=== PATIENT | female | born 1970 | race American Indian/Alaskan Native ===

== ENCOUNTER 2017-01-17 02:16 | Emergency (ER) | payer MEDICARE, MEDICAID ==
[2017-01-17] MEDS ORDERED: Sodium Chloride 0.9% 1,000 ML IV ONE (02:44)
--- NOTE | 2017-01-17 02:58 | EDM.PDOC ---
ED HPI GI/ABDOMINAL - General Chief Complaint: Gastrointestinal Problem Stated Complaint: COLON BLEED Time Seen by Provider: 01/17/17 02:35 Source of Information: Reports: Patient History Limitations: Reports: No limitations - History of Present Illness INITIAL COMMENTS - FREE TEXT/NARRATIVE: c/o abdominal cramping starting approximately 7pm tonight. Initially hard stool pressing to dark cranberry liquid and passing large clot through rectum. Hx of GI bleed in past. Timing/Duration: Reports: Hour(s): Location: generalized Quality: Reports: cramping Associated Symptoms (-Female): Reports: constipation, diarrhea, bloody stools. Denies: fever/chills, nausea/vomiting - Related Data Allergies/ADRs: Allergies Allergy/AdvReac Type Severity Reaction Status Date / Time levofloxacin [From Levaquin] Allergy Blurred Verified 01/17/17 02:23 Vision tramadol Allergy Nausea Verified 01/17/17 02:23 Home Meds: Home Meds Aspirin [[place] Aspirin] 81 mg PO BEDTIME 12/18/13 [History] DULoxetine [Cymbalta] 60 mg PO DAILY 12/18/13 [History] Levothyroxine Sodium [Synthroid] 125 mcg PO DAILY 12/18/13 [History] Loratadine [Allergy] 10 mg PO BEDTIME 12/18/13 [History] Multivitamin [Multi-Vitamin Daily] 1 each PO DAILY 12/18/13 [History] [place]-3/DHA/Epa/Fish Oil [Fish Oil 1,000 mg Softgel] 1 each PO BEDTIME 12/18/13 [History] atorvaSTATin Calcium [Atorvastatin Calcium] 10 mg PO DAILY 12/18/13 [History] Lisinopril [Prinivil] 10 mg PO DAILY 09/05/14 [History] sitaGLIPtin Phos/Metformin HCl [Janumet 50-1,000 MG] 1 each PO BID 10/19/14 [ History] Folic Acid 1 mg PO DAILY 02/06/15 [History] Methotrexate 2.5 mg PO Q7D 02/06/15 [History] Valproic Acid 1 tab PO BID 08/13/16 [History] Albuterol Sulfate [Proair Respiclick] 90 mcg IH Q6HR PRN 11/24/16 [History] Fluticasone Propionate [Flonase] 50 mcg NASBOTH DAILY PRN 11/24/16 [History] Polyethylene Glycol 3350 [MiraLAX] 17 gm PO DAILY PRN 11/24/16 [History] glipiZIDE [Glucotrol] 5 mg PO DAILY 11/24/16 [History] Acetaminophen/HYDROcodone [[place] 325-10 MG] 1 tab PO QID tablet 11/26/16 [Rx] Albuterol/Ipratropium [DuoNeb 3.0-0.5 MG/3 ML] 3 ml NEB Q6HR PRN #30 neb [Rx] Tocilizumab [Actemra] ASDIRECTED 01/17/17 [History] Past Medical History - Past Health History Medical/Surgical History: Denies Medical/Surgical History HEENT History: Reports: Impaired vision Cardiovascular History: Reports: High cholesterol, Hypertension Respiratory History: Reports: Asthma, Other (see below) Other Respiratory History: Pneumonia Gastrointestinal History: Reports: Chronic constipation, GI bleed, Other (see below) Other Gastrointestinal History: ischemic colitis Genitourinary History: Reports: None JOB BOSS History: Reports: Musculoskeletal History: Reports: Back pain, chronic, Fracture, Fibromyalgia, Osteoarthritis, RA Neurological History: Reports: Neuropathy, diabetic, TIA Psychiatric History: Reports: Depression Endocrine/Metabolic History: Reports: Diabetes, type II, Hypothyroidism, Obesity /BMI 30+ Hematologic History: Reports: None, Folic acid Immunologic History: Reports: None Oncologic (Cancer) History: Reports: None Dermatologic History: Reports: None - Infectious Disease History Infectious Disease History: Reports: Chicken pox, Other (see below) Other Infectious Disease History: chicken pox when a kid - Past Surgical History Head Surgeries/Procedures: Reports: None HEENT Surgical History: Reports: None Cardiovascular Surgical History: Reports: None GI Surgical History: Reports: Hernia repair/other, Other (see below) Other GI Surgeries/Procedures: Patient stated she needs another hernia repair. Female Surgical History: Reports: section, Hysterectomy Other Female Surgeries/Procedures: Patient stated she had a hysterectomy due to benign tumors. Social & Family History - Family History Family Medical History: Noncontributory HEENT: Reports: Glaucoma, Other (see below) Other HEENT Family History: aunt glaucoma Cardiac: Reports: Heart failure, High cholesterol, Hypertension, Other (see below) Other Cardiac Family History: Mother has high cholesterol and hypertension. Maternal grandmother heart failure. Respiratory: Reports: Asthma, COPD OBGYN: Reports: Musculoskeletal: Reports: Arthritis, Back pain, chronic, Osteoarthritis Endocrine/Metabolic: Reports: Diabetes, type II Oncologic: Reports: Breast, Lung - Tobacco Use Smoking Status *Q: Current Every Day Smoker Years of Tobacco use: 35 Packs/Tins Daily: 1 Used Tobacco, but Quit: No Month Tobacco Last Used: july Second Hand Smoke Exposure: No - Caffeine Use Caffeine Use: Reports: Coffee - Alcohol Use Days Per Week of Alcohol Use: 0 - Recreational Drug Use Recreational Drug Use: No - Sexual History Sexual History: Reports: Sexually active - Living Situation & Occupation Living situation: Reports: with family Occupation: disabled ED ROS GENERAL - Review of Systems Review Of Systems: See Below Constitutional: Reports: no symptoms HEENT: Reports: No symptoms Respiratory: Reports: no symptoms Cardiovascular: Reports: No symptoms GI/Abdominal: Reports: Abdominal pain, Bloody stool, Constipation, Diarrhea. Denies: Vomiting : Reports: no symptoms, other (rheumatoid arthritis) Skin: Reports: no symptoms Neurological: Reports: no symptoms Psychiatric: Reports: No symptoms ED EXAM, GI/ABD - Physical Exam Exam: See Below Exam Limited By: No limitations General Appearance: alert, anxious, mild distress Eyes: bilateral: EOMI (mild sclera injection bilaterally. ) Ears: normal external exam Nose: normal inspection Throat/Mouth: Normal inspection Head: atraumatic, normocephalic Neck: normal inspection, supple, non-tender, full range of motion Respiratory/Chest: no respiratory distress, lungs clear Cardiovascular: normal peripheral pulses, regular rate, rhythm GI/Abdominal: normal bowel sounds, soft, tenderness (generalized lower abdomen) . No: distention, guarding, rebound, hepatomegaly, splenomegaly Rectal (Female) Exam: Normal rectal tone, Other (No stool in rectal vault. scnat bright red blood on glove. No obvious hemorrhoids.) Back Exam: normal inspection, full range of motion Neurological: alert, oriented Psychiatric: normal affect, normal mood, anxious Skin Exam: Warm, Dry, Intact, Normal color Course - Vital Signs Last Recorded V/S: Last Vital Signs Temp 95.6 F 01/17/17 02:20 Pulse 80 01/17/17 02:20 Resp 16 01/17/17 02:20 BP 135/79 01/17/17 02:20 Pulse Ox 100 01/17/17 02:20 - Orders/Labs/Meds Orders: Active Orders 24 hr Category Date Time Status Abdomen Pelvis wo Cont [CT] Urgent Exams 01/17/17 03:02 Taken Sodium Chloride 0.9% [Normal Saline] 1,000 ml Med 01/17/17 02:44 Active IV .BOLUS Medication Orders Sodium Chloride (Normal Saline) 1,000 mls @ 200 mls/hr IV .BOLUS ONE Stop: 01/17/17 07:43 Last Admin: 01/17/17 02:54 Dose: 200 mls/hr Labs: Laboratory Tests 01/17/17 01/17/17 01/17/17 Range/Units 02:42 02:50 02:50 WBC 13.3 H (5.0-10.0) 10^3/uL RBC 4.82 (4.2-5.4) 10^6/uL Hgb 15.4 (12.0-16.0) g/dL Hct 46.3 (37.0-47.0) % MCV 96.1 (80-100) fL MCH 32.0 (27.0-34.0) pg MCHC 33.3 (33.0-35.0) g/dL Plt Count 171 (150-450) 10^3/uL Neut % (Auto) 59.9 (42.2-75.2) % Lymph % (Auto) 32.5 (20.5-50.1) % [place] % (Auto) 6.2 (2-8) % Eos % (Auto) 1.2 (1.0-3.0) % Baso % (Auto) 0.2 (0.0-1.0) % PT 10.3 (9.0-12.0) SEC INR 1.0 (0.9-1.2) Sodium (135-145) mmol/L Potassium (3.6-5.0) mmol/L Chloride (101-111) mmol/L Carbon Dioxide (21.0-31.0) mmol/L Anion Gap BUN (7-18) mg/dL Creatinine (0.6-1.3) mg/dL Est Cr Clr Drug Dosing mL/min Estimated GFR (MDRD) BUN/Creatinine Ratio Glucose (74-105) mg/dL Calcium (8.4-10.2) mg/dl Total Bilirubin (0.2-1.0) mg/dL AST (10-42) IU/L ALT (10-60) IU/L Alkaline Phosphatase (42-121) IU/L Total Protein (6.7-8.2) g/dl Albumin (3.2-5.5) g/dl Globulin Albumin/Globulin Ratio Amylase (28-100) U/L Lipase (22-51) U/L Urine Color Dark yellow (YELLOW) Urine Appearance Clear (CLEAR) Urine pH 7.5 (5.0-9.0) Ur Specific [place] 1.020 (1.005-1.030) Urine Protein Trace H (NEGATIVE) Urine Glucose (UA) Negative (NEGATIVE) Urine Ketones Negative (NEGATIVE) Urine Occult Blood Trace-intact H (NEGATIVE) Urine Nitrite Negative (NEGATIVE) Urine Bilirubin Negative (NEGATIVE) Urine Urobilinogen 0.2 (0.2-1.0) mg/dL Ur Leukocyte Esterase Negative (NEGATIVE) Urine RBC 0-5 /HPF Urine WBC Not seen (0-5/HPF) /HPF Ur Epithelial Cells Few /HPF Urine Bacteria Rare (0-FEW/HPF) /HPF 03// Range/Units 02:50 WBC (5.0-10.0) 10^3/uL RBC (4.2-5.4) 10^6/uL Hgb (12.0-16.0) g/dL Hct (37.0-47.0) % MCV (80-100) fL MCH (27.0-34.0) pg MCHC (33.0-35.0) g/dL Plt Count (150-450) 10^3/uL Neut % (Auto) (42.2-75.2) % Lymph % (Auto) (20.5-50.1) % [place] % (Auto) (2-8) % Eos % (Auto) (1.0-3.0) % Baso % (Auto) (0.0-1.0) % PT (9.0-12.0) SEC INR (0.9-1.2) Sodium 137 (135-145) mmol/L Potassium 4.3 (3.6-5.0) mmol/L Chloride 103 (101-111) mmol/L Carbon Dioxide 26.0 (21.0-31.0) mmol/L Anion Gap 12.3 BUN 16 (7-18) mg/dL Creatinine 0.6 (0.6-1.3) mg/dL Est Cr Clr Drug Dosing 111.51 mL/min Estimated GFR (MDRD) > 60 BUN/Creatinine Ratio 26.66 Glucose 106 H (74-105) mg/dL Calcium 8.9 (8.4-10.2) mg/dl Total Bilirubin 0.5 (0.2-1.0) mg/dL AST 39 (10-42) IU/L ALT 47 (10-60) IU/L Alkaline Phosphatase 47 (42-121) IU/L Total Protein 7.0 (6.7-8.2) g/dl Albumin 4.3 (3.2-5.5) g/dl Globulin 2.7 Albumin/Globulin Ratio 1.59 Amylase 45 (28-100) U/L Lipase 31 (22-51) U/L Urine Color (YELLOW) Urine Appearance (CLEAR) Urine pH (5.0-9.0) Ur Specific [place] (1.005-1.030) Urine Protein (NEGATIVE) Urine Glucose (UA) (NEGATIVE) Urine Ketones (NEGATIVE) Urine Occult Blood (NEGATIVE) Urine Nitrite (NEGATIVE) Urine Bilirubin (NEGATIVE) Urine Urobilinogen (0.2-1.0) mg/dL Ur Leukocyte Esterase (NEGATIVE) Urine RBC /HPF Urine WBC (0-5/HPF) /HPF Ur Epithelial Cells /HPF Urine Bacteria (0-FEW/HPF) /HPF Meds: Medications Generic Name Dose Route Start Last Admin Trade Name Freq PRN Reason Stop Dose Admin Sodium Chloride 1,000 mls @ 200 mls/hr 01/17/17 02:44 01/17/17 02:54 Normal Saline IV 01/17/17 07:43 200 mls/hr .BOLUS ONE Administration Discontinued Medications Generic Name Dose Route Start Last Admin Trade Name Freq PRN Reason Stop Dose Admin Pantoprazole Sodium 40 mg/ 100 mls @ 200 mls/hr 01/17/17 03:00 01/17/17 03:13 Sodium Chloride IV 01/17/17 03:29 200 mls/hr ONETIME ONE Administration - Radiology Interpretation Free Text/Narrative:: CT abdomen and pelvis notes incarcerated ventral hernia, inflammed sigmoid and short section of small bowel. Mesenteric stranding with fluid with in hernia sac - Re-Assessments/Exams Free Text/Narrative Re-Assessment/Exam: 01/17/17 04:46 TC consult [facility] Dr. Mendez accepting of patient in transfer. Tx via [facility]. Patient stable. Intermittent light dozing. NPO status maintained. Departure - Departure Time of Disposition: 04:49 Disposition: DC/Tfer to Acute Hospital 02 Condition: fair Clinical Impression: Incarcerated ventral hernia, Abdominal pain, High risk medication use, Rectal bleeding Diabetes Qualifiers: Diabetes mellitus type: type 2 Forms: ED Department Discharge - My Orders Last 24 Hours: My Active Orders 01/17/17 02:44 Sodium Chloride 0.9% [Normal Saline] 1,000 ml IV .BOLUS 01/17/17 03:02 Abdomen Pelvis wo Cont [CT] Urgent - Assessment/Plan Last 24 Hours: My Active Orders 01/17/17 02:44 Sodium Chloride 0.9% [Normal Saline] 1,000 ml IV .BOLUS 01/17/17 03:02 Abdomen Pelvis wo Cont [CT] Urgent
[2017-01-17] MEDS ORDERED: Pantoprazole 40 MG in Sodium Chloride 0.9% 100 ML IV ONE (03:00)
[2017-01-17 03:18] LABS: CHLORIDE,CL 103 mmol/L (101-111); SODIUM,NA 137 mmol/L (135-145)
[2017-01-17 04:46] VITALS: BP 119/61
[2017-01-17] MEDS ORDERED: Ondansetron 4 MG/2 ML SDV IV ONE (04:47)
[2017-01-17] MEDS ORDERED: Morphine 4 MG/ML Syringe IVPUSH ONE (04:48)
== END 2017-01-17 05:12 ==
LOC: DL.ED 02:16
DX: K46.0 Unspecified abdominal hernia with obstruction, without gangrene (principal); K62.5 Hemorrhage of anus and rectum; E11.9 Type 2 diabetes mellitus without complications; R10.9 Unspecified abdominal pain; E78.00 Pure hypercholesterolemia, unspecified; I10 Essential (primary) hypertension; G89.29 Other chronic pain; M54.9 Dorsalgia, unspecified; M19.90 Unspecified osteoarthritis, unspecified site; F17.210 Nicotine dependence, cigarettes, uncomplicated; E03.9 Hypothyroidism, unspecified; E66.9 Obesity, unspecified; Z68.36 Body mass index [BMI] 36.0-36.9, adult; Z86.73 Personal history of transient ischemic attack (TIA), and cerebral infarction without residual deficits; Z90.710 Acquired absence of both cervix and uterus; Z98.890 Other specified postprocedural states; Z79.899 Other long term (current) drug therapy; Z88.1 Allergy status to other antibiotic agents; Z88.5 Allergy status to narcotic agent; Z79.82 Long term (current) use of aspirin
CPT/HCPCS: 36415; 74176; 80053; 81001; 82150; 82272; 83690; 85025; 85610; 96361; 96365; 96375; 99285; C9113; J2270; J2405; J7030; J7050

== ENCOUNTER 2017-06-05 19:37 | Emergency (ER) | payer MEDICARE, MEDICAID ==
[2017-06-05 19:45] VITALS: BP 122/68
--- NOTE | 2017-06-05 20:12 | EDM.PDOC ---
ED HPI GENERAL MEDICAL PROBLEM - General Chief Complaint: Lower Extremity Injury/Pain Stated Complaint: LEG VERY PAINFUL, [id number] Time Seen by Provider: 06/05/17 20:00 Source of Information: Reports: Patient History Limitations: Reports: No Limitations - History of Present Illness INITIAL COMMENTS - FREE TEXT/NARRATIVE: ED with c/o pain for past 2 days in right knee, feels area is warm and swollen. RA has been flaring recently and due for routine infusion on Sunday. Notes remote hx of blood clots. Denies recent travel or sitting for extended periods. Quality: Reports: Ache, Throbbing Severity: Mild Associated Symptoms: Reports: No Other Symptoms Right Knee Pain Score (Numeric/FACES): 7 - Related Data Allergies Allergy/AdvReac Type Severity Reaction Status Date / Time levofloxacin [From Levaquin] Allergy Blurred Verified 06/05/17 19:44 Vision tramadol Allergy Nausea Verified 06/05/17 19:44 Home Meds: Home Meds Aspirin [[place] Aspirin] 81 mg PO BEDTIME 12/18/13 [History] DULoxetine [Cymbalta] 60 mg PO DAILY 12/18/13 [History] Levothyroxine Sodium [Synthroid] 125 mcg PO DAILY 12/18/13 [History] Loratadine [Allergy] 10 mg PO BEDTIME 12/18/13 [History] Multivitamin [Multi-Vitamin Daily] 1 each PO DAILY 12/18/13 [History] [place]-3/DHA/Epa/Fish Oil [Fish Oil 1,000 mg Softgel] 1 each PO BEDTIME 12/18/13 [History] atorvaSTATin Calcium [Atorvastatin Calcium] 10 mg PO DAILY 12/18/13 [History] Lisinopril [Prinivil] 10 mg PO DAILY 09/05/14 [History] sitaGLIPtin Phos/Metformin HCl [Janumet 50-1,000 MG] 1 each PO BID 10/19/14 [ History] Folic Acid 1 mg PO DAILY 02/06/15 [History] Methotrexate 2.5 mg PO Q7D 02/06/15 [History] Valproic Acid 1 tab PO BID 08/13/16 [History] Albuterol Sulfate [Proair Respiclick] 90 mcg IH Q6HR PRN 11/24/16 [History] Fluticasone Propionate [Flonase] 50 mcg NASBOTH DAILY PRN 11/24/16 [History] Polyethylene Glycol 3350 [MiraLAX] 17 gm PO DAILY PRN 11/24/16 [History] glipiZIDE [Glucotrol] 5 mg PO DAILY 11/24/16 [History] Acetaminophen/HYDROcodone [[place] 325-10 MG] 1 tab PO QID tablet 11/26/16 [Rx] Albuterol/Ipratropium [DuoNeb 3.0-0.5 MG/3 ML] 3 ml NEB Q6HR PRN #30 neb [Rx] Tocilizumab [Actemra] 1 dose IV ASDIRECTED 01/17/17 [History] Past Medical History - Past Health History Medical/Surgical History: Denies Medical/Surgical History HEENT History: Reports: Impaired Vision Cardiovascular History: Reports: High Cholesterol, Hypertension Respiratory History: Reports: Asthma Other Respiratory History: Pneumonia Gastrointestinal History: Reports: Chronic Constipation, GI Bleed Other Gastrointestinal History: ischemic colitis Genitourinary History: Reports: None 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: Musculoskeletal History: Reports: Back Pain, Chronic, Fracture, Fibromyalgia, Osteoarthritis, RA Neurological History: Reports: Neuropathy, Diabetic, TIA Psychiatric History: Reports: Depression Endocrine/Metabolic History: Reports: Diabetes, Type II, Hypothyroidism, Obesity /BMI 30+ Hematologic History: Reports: Folic Acid Immunologic History: Reports: None Oncologic (Cancer) History: Reports: None Dermatologic History: Reports: None - Infectious Disease History Infectious Disease History: Reports: Chicken Pox Other Infectious Disease History: chicken pox when a kid - Past Surgical History Head Surgeries/Procedures: Reports: None GI Surgical History: Reports: Hernia Repair/Other Female Surgical History: Reports: Section, Hysterectomy Social & Family History - Family History Family Medical History: Noncontributory HEENT: Reports: Glaucoma, Other (See Below) Other HEENT Family History: aunt glaucoma Cardiac: Reports: Heart Failure, High Cholesterol, Hypertension, Other (See Below) Other Cardiac Family History: Mother has high cholesterol and hypertension. Maternal grandmother heart failure. Respiratory: Reports: Asthma, COPD OBGYN: Reports: Musculoskeletal: Reports: Arthritis, Back pain, Chronic, Osteoarthritis Endocrine/Metabolic: Reports: Diabetes, type II Oncologic: Reports: Breast, Lung - Tobacco Use Smoking Status *Q: Current Every Day Smoker Years of Tobacco use: 30 Packs/Tins Daily: 0.5 Used Tobacco, but Quit: No Month Tobacco Last Used: july Second Hand Smoke Exposure: Yes - Caffeine Use Caffeine Use: Reports: Coffee - Alcohol Use Days Per Week of Alcohol Use: 0 - Recreational Drug Use Recreational Drug Use: No - Sexual History Sexual History: Reports: Sexually Active - Living Situation & Occupation Living situation: Reports: with Family Occupation: Disabled Review of Systems - Review of Systems Review Of Systems: See Below Constitutional: Reports: No Symptoms Eyes: Reports: No Symptoms Ears: Reports: No Symptoms Nose: Reports: No Symptoms Mouth/Throat: Reports: No Symptoms Respiratory: Reports: No Symptoms Cardiovascular: Reports: No Symptoms GI/Abdominal: Reports: No Symptoms, Other (hx GI bleed with antiinflamatory use) Musculoskeletal: Reports: Joint Pain (right knee), Joint Swelling Skin: Reports: No Symptoms Neurological: Reports: No Symptoms ED EXAM, GENERAL - Physical Exam Exam: See Below Exam Limited By: No Limitations General Appearance: Alert, Mild Distress (with ambulation) Eye Exam: Bilateral Eye: EOMI Ears: Normal External Exam Throat/Mouth: Normal Voice Head: Atraumatic, Normocephalic Neck: Normal Inspection Respiratory/Chest: No Respiratory Distress, Lungs Clear, Normal Breath Sounds Cardiovascular: Normal Peripheral Pulses, Regular Rate, Rhythm GI/Abdominal: Normal Bowel Sounds, Soft Extremities: Normal Range of Motion, Other (increased pain with flexion extension, crepitus noted. mild tenderness lateral knee with palpation, no laxity. Generalized arthritic deformities noted in finger and toe joints). No: Increased Warmth, Redness Psychiatric: Normal Affect, Normal Mood Skin Exam: Warm, Dry, Intact, Normal Color, No Rash Course - Vital Signs Last Recorded V/S: Last Vital Signs Temp 97.8 F 06/05/17 19:40 Pulse 90 06/05/17 19:40 Resp 18 06/05/17 19:40 BP 122/68 06/05/17 19:40 Pulse Ox 96 06/05/17 19:40 - Orders/Labs/Meds Labs: Laboratory Tests 06/05/17 06/05/17 06/05/17 Range/Units 20:00 20:00 20:00 WBC 9.2 (5.0-10.0) 10^3/uL RBC 4.66 (4.2-5.4) 10^6/uL Hgb 15.0 (12.0-16.0) g/dL Hct 45.1 (37.0-47.0) % MCV 96.8 (80-100) fL MCH 32.2 (27.0-34.0) pg MCHC 33.3 (33.0-35.0) g/dL Plt Count 188 (150-450) 10^3/uL Neut % (Auto) 45.7 (42.2-75.2) % Lymph % (Auto) 42.7 (20.5-50.1) % [place] % (Auto) 9.0 H (2-8) % Eos % (Auto) 2.4 (1.0-3.0) % Baso % (Auto) 0.2 (0.0-1.0) % PT 9.5 (9.0-12.0) SEC INR 0.9 (0.9-1.2) D-Dimer, Quantitative < 100 (0-400) ng/mL Sodium 139 (135-145) mmol/L Potassium 4.1 (3.6-5.0) mmol/L Chloride 101 (101-111) mmol/L Carbon Dioxide 24.0 (21.0-31.0) mmol/L Anion Gap 18.1 BUN 15 (7-18) mg/dL Creatinine 0.7 (0.6-1.3) mg/dL Est Cr Clr Drug Dosing 94.54 mL/min Estimated GFR (MDRD) > 60 BUN/Creatinine Ratio 21.42 Glucose 140 H (74-105) mg/dL Lactic Acid (0.5-2.2) mmol/L Calcium 9.3 (8.4-10.2) mg/dl Total Bilirubin 0.4 (0.2-1.0) mg/dL AST 30 (10-42) IU/L ALT 34 (10-60) IU/L Alkaline Phosphatase 46 (42-121) IU/L C-Reactive Protein (0.0-1.3) mg/dL Total Protein 7.1 (6.7-8.2) g/dl Albumin 4.6 (3.2-5.5) g/dl Globulin 2.5 Albumin/Globulin Ratio 1.84 06/05/17 06/05/17 Range/Units 20:00 20:00 WBC (5.0-10.0) 10^3/uL RBC (4.2-5.4) 10^6/uL Hgb (12.0-16.0) g/dL Hct (37.0-47.0) % MCV (80-100) fL MCH (27.0-34.0) pg MCHC (33.0-35.0) g/dL Plt Count (150-450) 10^3/uL Neut % (Auto) (42.2-75.2) % Lymph % (Auto) (20.5-50.1) % [place] % (Auto) (2-8) % Eos % (Auto) (1.0-3.0) % Baso % (Auto) (0.0-1.0) % PT (9.0-12.0) SEC INR (0.9-1.2) D-Dimer, Quantitative (0-400) ng/mL Sodium (135-145) mmol/L Potassium (3.6-5.0) mmol/L Chloride (101-111) mmol/L Carbon Dioxide (21.0-31.0) mmol/L Anion Gap BUN (7-18) mg/dL Creatinine (0.6-1.3) mg/dL Est Cr Clr Drug Dosing mL/min Estimated GFR (MDRD) BUN/Creatinine Ratio Glucose (74-105) mg/dL Lactic Acid 2.7 H (0.5-2.2) mmol/L Calcium (8.4-10.2) mg/dl Total Bilirubin (0.2-1.0) mg/dL AST (10-42) IU/L ALT (10-60) IU/L Alkaline Phosphatase (42-121) IU/L C-Reactive Protein 1.6 H (0.0-1.3) mg/dL Total Protein (6.7-8.2) g/dl Albumin (3.2-5.5) g/dl Globulin Albumin/Globulin Ratio - Radiology Interpretation Free Text/Narrative:: right knee xray negative - Re-Assessments/Exams Free Text/Narrative Re-Assessment/Exam: 06/05/17 21:05 Lab and xray results discussed with patient. discharge instructions reviewed. 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
[2017-06-05 20:34] LABS: CHLORIDE,CL 101 mmol/L (101-111); SODIUM,NA 139 mmol/L (135-145)
== END 2017-06-05 21:08 | disposition home or self-care (01) ==
LOC: DL.ED 19:37
DX: M06.9 Rheumatoid arthritis, unspecified (principal); H54.7 Unspecified visual loss; E78.00 Pure hypercholesterolemia, unspecified; I10 Essential (primary) hypertension; J45.909 Unspecified asthma, uncomplicated; M19.90 Unspecified osteoarthritis, unspecified site; E66.9 Obesity, unspecified; E03.9 Hypothyroidism, unspecified; F32.9 Major depressive disorder, single episode, unspecified; E11.40 Type 2 diabetes mellitus with diabetic neuropathy, unspecified; Z90.710 Acquired absence of both cervix and uterus; Z88.1 Allergy status to other antibiotic agents; Z87.01 Personal history of pneumonia (recurrent); Z79.82 Long term (current) use of aspirin; Z79.899 Other long term (current) drug therapy; F17.210 Nicotine dependence, cigarettes, uncomplicated
CPT/HCPCS: 36415; 73562-RT; 80053; 83605; 85025; 85379; 85610; 86140; 99282; 99283

== ENCOUNTER 2017-10-17 19:58 | Emergency (ER) | payer MEDICARE, MEDICAID ==
[2017-10-17] MEDS ORDERED: Iopamidol 612 MG/ML 100 ML Bottle IVPUSH ONE (20:22)
[2017-10-17] MEDS ORDERED: Sodium Chloride 0.9% 1,000 ML IV ONE (20:23)
--- NOTE | 2017-10-17 20:28 | EDM.PDOC ---
ED HPI GENERAL MEDICAL PROBLEM - General Chief Complaint: Chest Pain Stated Complaint: PRESSURE/PAIN AROUND CHEST X 3 DAYS Time Seen by Provider: 10/17/17 20:24 Source of Information: Reports: Patient History Limitations: Reports: No Limitations - History of Present Illness INITIAL COMMENTS - FREE TEXT/NARRATIVE: 3 days h/o problem but more concerned with her bowels, gives h/o multiple surgeries from bowels twisting. actually feels better after belching. Epigastric Pain Score (Numeric/FACES): 8 - Related Data Allergies Allergy/AdvReac Type Severity Reaction Status Date / Time levofloxacin [From Levaquin] Allergy Blurred Verified 10/17/17 20:09 Vision tramadol Allergy Nausea Verified 10/17/17 20:09 Home Meds: Home Meds Aspirin [[place] Aspirin] 81 mg PO BEDTIME 12/18/13 [History] DULoxetine [Cymbalta] 60 mg PO DAILY 12/18/13 [History] Levothyroxine Sodium [Synthroid] 150 mcg PO DAILY 12/18/13 [History] Loratadine [Allergy] 10 mg PO BEDTIME 12/18/13 [History] Multivitamin [Multi-Vitamin Daily] 1 each PO DAILY 12/18/13 [History] atorvaSTATin Calcium [Atorvastatin Calcium] 20 mg PO DAILY 12/18/13 [History] Lisinopril [Prinivil] 10 mg PO DAILY 09/05/14 [History] sitaGLIPtin Phos/Metformin HCl [Janumet 50-1,000 MG] 1 each PO BID 10/19/14 [ History] Folic Acid 1 mg PO DAILY 02/06/15 [History] Methotrexate 2.5 mg PO Q7D 02/06/15 [History] Albuterol Sulfate [Proair Respiclick] 90 mcg IH Q6HR PRN 11/24/16 [History] Fluticasone Propionate [Flonase] 50 mcg NASBOTH DAILY PRN 11/24/16 [History] Polyethylene Glycol 3350 [MiraLAX] 17 gm PO DAILY PRN 11/24/16 [History] Albuterol/Ipratropium [DuoNeb 3.0-0.5 MG/3 ML] 3 ml NEB Q6HR PRN #30 neb [Rx] Tocilizumab [Actemra] 1 dose IV ASDIRECTED 01/17/17 [History] Acetaminophen/HYDROcodone [[place] 325-10 MG] 1 tab PO QID PRN 10/17/17 [History] Calcium Carbonate/Vitamin D3 [Calcium 500-Vit D3 600 Caplet] 1 each PO DAILY [History] Docusate Sodium 100 mg PO ASDIRECTED 10/17/17 [History] HYDROcodone Bitartrate [Hysingla ER] 40 mg PO DAILY 10/17/17 [History] Pregabalin [Lyrica] 150 mg PO TID 10/17/17 [History] Past Medical History - Past Health History Medical/Surgical History: Denies Medical/Surgical History HEENT History: Reports: Impaired Vision Cardiovascular History: Reports: High Cholesterol, Hypertension Respiratory History: Reports: Asthma Other Respiratory History: Pneumonia Gastrointestinal History: Reports: Chronic Constipation, GI Bleed Other Gastrointestinal History: ischemic colitis Genitourinary History: Reports: None 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: Musculoskeletal History: Reports: Back Pain, Chronic, Fracture, Fibromyalgia, Osteoarthritis, RA Neurological History: Reports: Neuropathy, Diabetic, TIA Psychiatric History: Reports: Depression Endocrine/Metabolic History: Reports: Diabetes, Type II, Hypothyroidism, Obesity /BMI 30+ Hematologic History: Reports: Folic Acid Immunologic History: Reports: None Oncologic (Cancer) History: Reports: None Dermatologic History: Reports: None - Infectious Disease History Infectious Disease History: Reports: Chicken Pox Other Infectious Disease History: chicken pox when a kid - Past Surgical History Head Surgeries/Procedures: Reports: None GI Surgical History: Reports: Hernia Repair/Other Female Surgical History: Reports: Section, Hysterectomy Social & Family History - Family History Family Medical History: Noncontributory HEENT: Reports: Glaucoma, Other (See Below) Other HEENT Family History: aunt glaucoma Cardiac: Reports: Heart Failure, High Cholesterol, Hypertension, Other (See Below) Other Cardiac Family History: Mother has high cholesterol and hypertension. Maternal grandmother heart failure. Respiratory: Reports: Asthma, COPD OBGYN: Reports: Musculoskeletal: Reports: Arthritis, Back pain, Chronic, Osteoarthritis Endocrine/Metabolic: Reports: Diabetes, type II Oncologic: Reports: Breast, Lung - Tobacco Use Smoking Status *Q: Current Every Day Smoker Years of Tobacco use: 30 Packs/Tins Daily: 0.7 Used Tobacco, but Quit: No Month Tobacco Last Used: july Second Hand Smoke Exposure: Yes - Caffeine Use Caffeine Use: Reports: Coffee - Alcohol Use Days Per Week of Alcohol Use: 0 - Recreational Drug Use Recreational Drug Use: No - Sexual History Sexual History: Reports: Sexually Active - Living Situation & Occupation Living situation: Reports: with Family Occupation: Disabled ED ROS GENERAL - Review of Systems Review Of Systems: ROS reveals no pertinent complaints other than HPI. ED EXAM, GENERAL - Physical Exam Exam: See Below Exam Limited By: No Limitations General Appearance: Alert, WD/WN, Mild Distress, Other (discomfort) Ears: Hearing Grossly Normal Throat/Mouth: Normal Voice, No Airway Compromise Head: Atraumatic Neck: Non-Tender, Full Range of Motion Respiratory/Chest: No Respiratory Distress Cardiovascular: Regular Rate, Rhythm GI/Abdominal: Soft, Tender, Abnormal Bowel Sounds, Other (hyper BS, generalized discomfort). No: Distended, Guarding, Rigid, Rebound Neurological: Alert, Oriented, Normal Cognition, Normal Gait, No Motor/Sensory Deficits Psychiatric: Flat Affect Skin Exam: Warm, Dry, Normal Color Lymphatic: No Adenopathy Course - Vital Signs Last Recorded V/S: Last Vital Signs Temp 36.2 C 10/17/17 22:32 Pulse 69 10/17/17 22:32 Resp 18 10/17/17 22:32 BP 121/81 10/17/17 22:32 Pulse Ox 96 10/17/17 22:32 - Orders/Labs/Meds Labs: Laboratory Tests 10/17/17 10/17/17 10/17/17 Range/Units 20:12 20:12 20:12 WBC 9.9 (5.0-10.0) 10^3/uL RBC 4.30 (4.2-5.4) 10^6/uL Hgb 14.3 (12.0-16.0) g/dL Hct 42.2 (37.0-47.0) % MCV 98.1 (80-100) fL MCH 33.3 (27.0-34.0) pg MCHC 33.9 (33.0-35.0) g/dL Plt Count 287 D (150-450) 10^3/uL Neut % (Auto) 50.8 (42.2-75.2) % Lymph % (Auto) 39.2 (20.5-50.1) % [place] % (Auto) 7.8 (2-8) % Eos % (Auto) 1.9 (1.0-3.0) % Baso % (Auto) 0.3 (0.0-1.0) % D-Dimer, Quantitative 1750 H (0-400) ng/mL Sodium 136 (135-145) mmol/L Potassium 3.9 (3.6-5.0) mmol/L Chloride 100 L (101-111) mmol/L Carbon Dioxide 23.0 (21.0-31.0) mmol/L Anion Gap 16.9 BUN 9 (7-18) mg/dL Creatinine 0.4 L (0.6-1.3) mg/dL Est Cr Clr Drug Dosing 165.44 mL/min Estimated GFR (MDRD) > 60 BUN/Creatinine Ratio 22.50 Glucose 206 H (74-105) mg/dL Calcium 8.9 (8.4-10.2) mg/dl Total Bilirubin 0.3 (0.2-1.0) mg/dL AST 24 (10-42) IU/L ALT 29 (10-60) IU/L Alkaline Phosphatase 70 (42-121) IU/L Troponin I < 0.02 (0.00-0.02) ng/ml Total Protein 7.4 (6.7-8.2) g/dl Albumin 4.1 (3.2-5.5) g/dl Globulin 3.3 Albumin/Globulin Ratio 1.24 Urine Color (YELLOW) Urine Appearance (CLEAR) Urine pH (5.0-9.0) Ur Specific [place] (1.005-1.030) Urine Protein (NEGATIVE) Urine Glucose (UA) (NEGATIVE) Urine Ketones (NEGATIVE) Urine Occult Blood (NEGATIVE) Urine Nitrite (NEGATIVE) Urine Bilirubin (NEGATIVE) Urine Urobilinogen (0.2-1.0) mg/dL Ur Leukocyte Esterase (NEGATIVE) Urine RBC /HPF Urine WBC (0-5/HPF) /HPF Ur Epithelial Cells /HPF Urine Bacteria (0-FEW/HPF) /HPF Urine Mucus /LPF 10/17/17 Range/Units 21:37 WBC (5.0-10.0) 10^3/uL RBC (4.2-5.4) 10^6/uL Hgb (12.0-16.0) g/dL Hct (37.0-47.0) % MCV (80-100) fL MCH (27.0-34.0) pg MCHC (33.0-35.0) g/dL Plt Count (150-450) 10^3/uL Neut % (Auto) (42.2-75.2) % Lymph % (Auto) (20.5-50.1) % [place] % (Auto) (2-8) % Eos % (Auto) (1.0-3.0) % Baso % (Auto) (0.0-1.0) % D-Dimer, Quantitative (0-400) ng/mL Sodium (135-145) mmol/L Potassium (3.6-5.0) mmol/L Chloride (101-111) mmol/L Carbon Dioxide (21.0-31.0) mmol/L Anion Gap BUN (7-18) mg/dL Creatinine (0.6-1.3) mg/dL Est Cr Clr Drug Dosing mL/min Estimated GFR (MDRD) BUN/Creatinine Ratio Glucose (74-105) mg/dL Calcium (8.4-10.2) mg/dl Total Bilirubin (0.2-1.0) mg/dL AST (10-42) IU/L ALT (10-60) IU/L Alkaline Phosphatase (42-121) IU/L Troponin I (0.00-0.02) ng/ml Total Protein (6.7-8.2) g/dl Albumin (3.2-5.5) g/dl Globulin Albumin/Globulin Ratio Urine Color Yellow (YELLOW) Urine Appearance Clear (CLEAR) Urine pH 6.5 (5.0-9.0) Ur Specific [place] 1.010 (1.005-1.030) Urine Protein Negative (NEGATIVE) Urine Glucose (UA) Negative (NEGATIVE) Urine Ketones Negative (NEGATIVE) Urine Occult Blood Negative (NEGATIVE) Urine Nitrite Negative (NEGATIVE) Urine Bilirubin Negative (NEGATIVE) Urine Urobilinogen 0.2 (0.2-1.0) mg/dL Ur Leukocyte Esterase Negative (NEGATIVE) Urine RBC 0-5 /HPF Urine WBC 0-5 (0-5/HPF) /HPF Ur Epithelial Cells Rare /HPF Urine Bacteria Rare (0-FEW/HPF) /HPF Urine Mucus Rare /LPF Meds: Medications Discontinued Medications Generic Name Dose Route Start Last Admin Trade Name Freq PRN Reason Stop Dose Admin Dicyclomine HCl 20 mg 10/17/17 22:50 10/17/17 22:55 Bentyl IM 10/17/17 22:51 20 mg ONETIME ONE Administration Sodium Chloride 1,000 mls @ 999 mls/hr 10/17/17 20:23 10/17/17 20:58 Normal Saline IV 10/17/17 21:23 999 mls/hr .BOLUS ONE Administration Iopamidol 100 ml 10/17/17 20:22 10/17/17 22:32 Isovue-300 (61%) IVPUSH 10/17/17 20:23 Not Given ONETIME ONE Iopamidol 100 ml 10/17/17 20:54 10/17/17 21:46 Isovue-370 (76%) IVPUSH 10/17/17 20:55 78 ml ONETIME ONE Administration - Re-Assessments/Exams Free Text/Narrative Re-Assessment/Exam: 10/17/17 22:50 results discussed with pt who feels ok except for her gassiness. Departure - Departure Time of Disposition: 23:14 Disposition: Home, Self-Care 01 Condition: Good Clinical Impression: Abdominal pain Instructions: Nonspecific Chest Pain, [id number] Referrals: Annette Calderon MD [Primary Care Provider] - Forms: ED Department Discharge Additional Instructions: 1) avoid solid foods next 48 hours 2) have broth, jello, prune juice 3) follow up at clinic or recheck as needed rx given; benytl 10mg bid prn cramps x 12
[2017-10-17 20:41] LABS: CHLORIDE,CL 100 mmol/L (101-111); SODIUM,NA 136 mmol/L (135-145)
[2017-10-17] MEDS ORDERED: Iopamidol 755 Mg/ML 100 ML Bottle IVPUSH ONE (20:54)
[2017-10-17 22:32] VITALS: BP 121/81
[2017-10-17] MEDS ORDERED: Dicyclomine 20 MG/2 ML SDV IM ONE (22:50)
--- NOTE | 2017-10-19 18:57 | EKG ---
10/17/2017 - DAYSI BREWER - EKG per my reading shows sinus rhythm at the rate of 79. [facility] /[id number]
== END 2017-10-17 23:14 | disposition home or self-care (01) ==
LOC: DL.ED 19:58
DX: R10.13 Epigastric pain (principal); I10 Essential (primary) hypertension; E78.00 Pure hypercholesterolemia, unspecified; J45.909 Unspecified asthma, uncomplicated; E11.40 Type 2 diabetes mellitus with diabetic neuropathy, unspecified; E03.9 Hypothyroidism, unspecified; F17.210 Nicotine dependence, cigarettes, uncomplicated; Z79.899 Other long term (current) drug therapy; Z88.1 Allergy status to other antibiotic agents; Z88.5 Allergy status to narcotic agent
CPT/HCPCS: 36415; 71260; 74176; 80053; 81001; 84484; 85025; 85379; 93005; 93010; 96360; 96372; 99285; J0500; J7030; Q9967; 99282

== ENCOUNTER 2017-10-30 08:23 | Emergency (ER) | payer MEDICARE, MEDICAID ==
[2017-10-30 08:35] VITALS: BP 108/75
--- NOTE | 2017-10-30 08:42 | EDM.PDOC ---
ED HPI GENERAL MEDICAL PROBLEM - General Chief Complaint: ENT Problem Stated Complaint: [id number] LEFT EAR PAIN Time Seen by Provider: 10/30/17 08:35 Source of Information: Reports: Patient History Limitations: Reports: No Limitations - History of Present Illness INITIAL COMMENTS - FREE TEXT/NARRATIVE: This 47 yo female reports to the ED with left ear itching for 2 days. The patient also reports she has had some drainage yesterday. Onset Date: 10/29/17 Duration: Constant, Getting Worse Location: Reports: Head Quality: Reports: Other (itching) Severity: Mild Improves with: Reports: None Worsens with: Reports: None Associated Symptoms: Reports: No Other Symptoms - Related Data Allergies Allergy/AdvReac Type Severity Reaction Status Date / Time levofloxacin [From Levaquin] Allergy Blurred Verified 10/17/17 20:09 Vision tramadol Allergy Nausea Verified 10/17/17 20:09 Home Meds: Home Meds Aspirin [[place] Aspirin] 81 mg PO BEDTIME 12/18/13 [History] DULoxetine [Cymbalta] 60 mg PO DAILY 12/18/13 [History] Levothyroxine Sodium [Synthroid] 150 mcg PO DAILY 12/18/13 [History] Loratadine [Allergy] 10 mg PO BEDTIME 12/18/13 [History] Multivitamin [Multi-Vitamin Daily] 1 each PO DAILY 12/18/13 [History] atorvaSTATin Calcium [Atorvastatin Calcium] 20 mg PO DAILY 12/18/13 [History] Lisinopril [Prinivil] 10 mg PO DAILY 09/05/14 [History] sitaGLIPtin Phos/Metformin HCl [Janumet 50-1,000 MG] 1 each PO BID 10/19/14 [ History] Folic Acid 1 mg PO DAILY 02/06/15 [History] Methotrexate 2.5 mg PO Q7D 02/06/15 [History] Albuterol Sulfate [Proair Respiclick] 90 mcg IH Q6HR PRN 11/24/16 [History] Fluticasone Propionate [Flonase] 50 mcg NASBOTH DAILY PRN 11/24/16 [History] Polyethylene Glycol 3350 [MiraLAX] 17 gm PO DAILY PRN 11/24/16 [History] Albuterol/Ipratropium [DuoNeb 3.0-0.5 MG/3 ML] 3 ml NEB Q6HR PRN #30 neb [Rx] Tocilizumab [Actemra] 1 dose IV ASDIRECTED 01/17/17 [History] Acetaminophen/HYDROcodone [[place] 325-10 MG] 1 tab PO QID PRN 10/17/17 [History] Calcium Carbonate/Vitamin D3 [Calcium 500-Vit D3 600 Caplet] 1 each PO DAILY [History] Docusate Sodium 100 mg PO ASDIRECTED 10/17/17 [History] HYDROcodone Bitartrate [[place] ER] 40 mg PO DAILY 10/17/17 [History] Pregabalin [Lyrica] 150 mg PO TID 10/17/17 [History] Past Medical History - Past Health History Medical/Surgical History: Denies Medical/Surgical History HEENT History: Reports: Impaired Vision Cardiovascular History: Reports: High Cholesterol, Hypertension Respiratory History: Reports: Asthma Other Respiratory History: Pneumonia Gastrointestinal History: Reports: Chronic Constipation, GI Bleed Other Gastrointestinal History: ischemic colitis Genitourinary History: Reports: None 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: Musculoskeletal History: Reports: Back Pain, Chronic, Fracture, Fibromyalgia, Osteoarthritis, RA Neurological History: Reports: Neuropathy, Diabetic, TIA Psychiatric History: Reports: Depression Endocrine/Metabolic History: Reports: Diabetes, Type II, Hypothyroidism, Obesity /BMI 30+ Hematologic History: Reports: Folic Acid Immunologic History: Reports: None Oncologic (Cancer) History: Reports: None Dermatologic History: Reports: None - Infectious Disease History Infectious Disease History: Reports: Chicken Pox Other Infectious Disease History: chicken pox when a kid - Past Surgical History Head Surgeries/Procedures: Reports: None GI Surgical History: Reports: Hernia Repair/Other Female Surgical History: Reports: Section, Hysterectomy Social & Family History - Family History Family Medical History: Noncontributory HEENT: Reports: Glaucoma, Other (See Below) Other HEENT Family History: aunt glaucoma Cardiac: Reports: Heart Failure, High Cholesterol, Hypertension, Other (See Below) Other Cardiac Family History: Mother has high cholesterol and hypertension. Maternal grandmother heart failure. Respiratory: Reports: Asthma, COPD OBGYN: Reports: Musculoskeletal: Reports: Arthritis, Back pain, Chronic, Osteoarthritis Endocrine/Metabolic: Reports: Diabetes, type II Oncologic: Reports: Breast, Lung - Tobacco Use Smoking Status *Q: Current Every Day Smoker Years of Tobacco use: 30 Packs/Tins Daily: 0.7 Used Tobacco, but Quit: No Month Tobacco Last Used: july Second Hand Smoke Exposure: Yes - Caffeine Use Caffeine Use: Reports: Coffee - Alcohol Use Days Per Week of Alcohol Use: 0 - Recreational Drug Use Recreational Drug Use: No - Sexual History Sexual History: Reports: Sexually Active - Living Situation & Occupation Living situation: Reports: with Family Occupation: Disabled ED ROS ENT - Review of Systems Review Of Systems: ROS reveals no pertinent complaints other than HPI. ED EXAM, ENT - Physical Exam Exam: See Below Exam Limited By: No Limitations General Appearance: Alert, WD/WN, Mild Distress, Obese Eye Exam: Bilateral Eye: EOMI, Normal Inspection, PERRL Ears: Normal External Exam, Normal Canal, Hearing Grossly Normal, Normal TMs Nose: Normal Inspection, Normal Mucousa, No Blood Mouth/Throat: Normal Inspection, Normal Gums, Normal Lips, Normal Oropharynx, Normal Teeth Head: Atraumatic, Normocephalic Neck: Normal Inspection Respiratory/Chest: No Respiratory Distress, Lungs Clear, Normal Breath Sounds, No Accessory Muscle Use, Chest Non-Tender Cardiovascular: Normal Peripheral Pulses, Regular Rate, Rhythm, No Edema, No Gallop, No JVD, No Murmur, No Rub GI/Abdominal: Normal Bowel Sounds, Soft, Non-Tender, No Organomegaly, No Distention, No Abnormal Bruit, No Mass (Female) Exam: Deferred Rectal (Female) Exam: Deferred Back: Normal Inspection, Full Range of Motion Extremities: Normal Inspection, Normal Range of Motion, Non-Tender, No Pedal Edema, Normal Capillary Refill Neurological: Alert, Oriented, CN II-XII Intact, Normal Cognition, Normal Gait, Normal Reflexes, No Motor/Sensory Deficits Psychiatric: Normal Affect, Normal Mood Skin: Warm, Dry, Intact, Normal Color, No Rash Lymphatic: No Adenopathy Course - Vital Signs Last Recorded V/S: Last Vital Signs Temp 36.1 C 10/30/17 08:34 Pulse 74 10/30/17 08:34 Resp 16 10/30/17 08:34 BP 108/75 10/30/17 08:34 Pulse Ox 99 10/30/17 08:34 Departure - Departure Time of Disposition: 08:45 Disposition: Home, Self-Care 01 Condition: Good Clinical Impression: Dry skin - Discharge Information Care Plan Goals: The patient was advised of the examination results during the visit. The patient was advised to stop using her finger to itch the ear canal. If the patient has any additional symptoms or concerns, the patient should follow-up with her primary care facility for continued evaluation and management.
== END 2017-10-30 08:50 | disposition home or self-care (01) ==
LOC: DL.ED 08:23
DX: L85.3 Xerosis cutis (principal); E78.00 Pure hypercholesterolemia, unspecified; I10 Essential (primary) hypertension; E11.9 Type 2 diabetes mellitus without complications; F17.210 Nicotine dependence, cigarettes, uncomplicated; Z88.5 Allergy status to narcotic agent; Z88.1 Allergy status to other antibiotic agents; Z79.82 Long term (current) use of aspirin; Z79.899 Other long term (current) drug therapy
CPT/HCPCS: 99282

== ENCOUNTER 2018-03-28 07:40 | Emergency (ER) | payer MEDICARE, MEDICAID ==
[2018-03-28] MEDS ORDERED: Sodium Chloride 0.9% 10 ML Syringe FLUSH PRN (07:51)
--- NOTE | 2018-03-28 07:51 | EDM.PDOC ---
ED HPI GENERAL MEDICAL PROBLEM - General Chief Complaint: Chest Pain Stated Complaint: CHEST,BACK PAIN. FEELING ICKY Time Seen by Provider: 03/28/18 07:49 Source of Information: Reports: Patient, Old Records, RN, RN Notes Reviewed History Limitations: Reports: No Limitations - History of Present Illness INITIAL COMMENTS - FREE TEXT/NARRATIVE: Arrives from home by POV with c/o sudden onset of generalized chest pain this morning while sitting and folding laundry. Pt states the pain lasted approximately 5 minutes, and radiated into the neck and back, then went away. Pt is very anxious because she recently saw her doctor in clinic and was told she has a heart murmur and had an EKG and ECHO. Pt states that ECHO was done on 03/25/18 and she still hasn't been notified of the results yet. Currently the pt states the chest pain has completely resolved but she still has some sensation of "fullness" in her neck. Pt is noted to have a cough, which she states is a chronic "smokers cough" but did get worse a week or two ago so her doctor put her on doxycycline but she hasn't really improved much yet. She denies fever or chills, and reports the cough is mostly dry with occ. sputum production. She denies edema, palpitations, rapid or irregular HR, or shortness of breath. Onset: Today Location: Reports: Chest Quality: Reports: Ache, Pressure Severity: Moderate Improves with: Reports: None Worsens with: Reports: None Associated Symptoms: Reports: No Other Symptoms - Related Data Allergies Allergy/AdvReac Type Severity Reaction Status Date / Time levofloxacin [From Levaquin] Allergy Blurred Verified 03/28/18 08:10 Vision tramadol Allergy Nausea Verified 03/28/18 08:10 Home Meds: Home Meds Aspirin [[place] Aspirin] 81 mg PO BEDTIME 12/18/13 [History] DULoxetine [Cymbalta] 60 mg PO DAILY 12/18/13 [History] Levothyroxine Sodium [Synthroid] 150 mcg PO DAILY 12/18/13 [History] Loratadine [Allergy] 10 mg PO BEDTIME 12/18/13 [History] Multivitamin [Multi-Vitamin Daily] 1 each PO DAILY 12/18/13 [History] atorvaSTATin Calcium [Atorvastatin Calcium] 20 mg PO DAILY 12/18/13 [History] Lisinopril [Prinivil] 10 mg PO DAILY 09/05/14 [History] sitaGLIPtin Phos/Metformin HCl [Janumet 50-1,000 MG] 1 each PO BID 10/19/14 [ History] Folic Acid 1 mg PO DAILY 02/06/15 [History] Methotrexate 2.5 mg PO Q7D 02/06/15 [History] Albuterol Sulfate [Proair Respiclick] 90 mcg IH Q6HR PRN 11/24/16 [History] Fluticasone Propionate [Flonase] 50 mcg NASBOTH DAILY PRN 11/24/16 [History] Polyethylene Glycol 3350 [MiraLAX] 17 gm PO DAILY PRN 11/24/16 [History] Albuterol/Ipratropium [DuoNeb 3.0-0.5 MG/3 ML] 3 ml NEB Q6HR PRN #30 neb [Rx] Tocilizumab [Actemra] 1 dose IV ASDIRECTED 01/17/17 [History] Acetaminophen/HYDROcodone [[place] 325-10 MG] 1 tab PO QID PRN 10/17/17 [History] Calcium Carbonate/Vitamin D3 [Calcium 500-Vit D3 600 Caplet] 1 each PO DAILY [History] Docusate Sodium 100 mg PO ASDIRECTED 10/17/17 [History] HYDROcodone Bitartrate [[place] ER] 40 mg PO DAILY 10/17/17 [History] Pregabalin [Lyrica] 150 mg PO TID 10/17/17 [History] Past Medical History - Past Health History Medical/Surgical History: Denies Medical/Surgical History HEENT History: Reports: Impaired Vision Cardiovascular History: Reports: High Cholesterol, Hypertension Respiratory History: Reports: Asthma, COPD, Other (See Below) (smoker) Other Respiratory History: Pneumonia Gastrointestinal History: Reports: Chronic Constipation, GI Bleed Other Gastrointestinal History: ischemic colitis Genitourinary History: Reports: None [employer]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: Musculoskeletal History: Reports: Back Pain, Chronic, Fracture, Fibromyalgia, Osteoarthritis, RA Neurological History: Reports: Neuropathy, Diabetic, TIA Psychiatric History: Reports: Anxiety, Depression Endocrine/Metabolic History: Reports: Diabetes, Type II, Hypothyroidism, Obesity /BMI 30+ Hematologic History: Reports: Folic Acid Immunologic History: Reports: None Oncologic (Cancer) History: Reports: None Dermatologic History: Reports: None - Infectious Disease History Infectious Disease History: Reports: Chicken Pox Other Infectious Disease History: chicken pox when a kid - Past Surgical History Head Surgeries/Procedures: Reports: None GI Surgical History: Reports: Hernia Repair/Other Female Surgical History: Reports: Section, Hysterectomy Social & Family History - Family History Family Medical History: Noncontributory HEENT: Reports: Glaucoma, Other (See Below) Other HEENT Family History: aunt glaucoma Cardiac: Reports: Heart Failure, High Cholesterol, Hypertension, Other (See Below) Other Cardiac Family History: Mother has high cholesterol and hypertension. Maternal grandmother heart failure. Respiratory: Reports: Asthma, COPD OBGYN: Reports: Musculoskeletal: Reports: Arthritis, Back pain, Chronic, Osteoarthritis Endocrine/Metabolic: Reports: Diabetes, type II Oncologic: Reports: Breast, Lung - Tobacco Use Smoking Status *Q: Current Every Day Smoker Tobacco Use Within Last Twelve Months: Cigarettes Years of Tobacco use: 32 Packs/Tins Daily: 1 Smoking Cessation Information Provided To Patient: Patient Refused Second Hand Smoke Exposure: Yes - Caffeine Use Caffeine Use: Reports: Coffee - Alcohol Use Alcohol Use History: No - Recreational Drug Use Recreational Drug Use: No - Sexual History Sexual History: Reports: Sexually Active - Living Situation & Occupation Living situation: Reports: with Family Occupation: Disabled ED ROS GENERAL - Review of Systems Review Of Systems: ROS reveals no pertinent complaints other than HPI. ED EXAM, GENERAL - Physical Exam Exam: See Below Exam Limited By: No Limitations General Appearance: Alert, No Apparent Distress, Anxious, Obese Eye Exam: Bilateral Eye: Normal Inspection Ears: Hearing Grossly Normal Nose: Normal Inspection Throat/Mouth: Normal Inspection, Normal Lips, Normal Teeth, Normal Gums, Normal Oropharynx, Normal Voice, No Airway Compromise Head: Atraumatic, Normocephalic Neck: Normal Inspection, Supple, Non-Tender, Full Range of Motion. No: Lymphadenopathy (L), Lymphadenopathy (R) Respiratory/Chest: No Respiratory Distress, No Accessory Muscle Use, Chest Non- Tender, Decreased Breath Sounds, Other (course breath sounds, occasional cough) . No: Rales, Rhonchi, Wheezing Cardiovascular: Normal Peripheral Pulses, Regular Rate, Rhythm, No Edema, No Gallop, No JVD, No Murmur, No Rub GI/Abdominal: Normal Bowel Sounds, Soft, Non-Tender, No Distention, Other ( benign obese abdomen). No: Guarding, Rigid, Rebound (Female) Exam: Deferred Rectal (Female) Exam: Deferred Back Exam: Normal Inspection, Full Range of Motion. No: CVA Tenderness (L), CVA Tenderness (R) Extremities: Normal Inspection, Normal Range of Motion, Non-Tender, Normal Capillary Refill, No Pedal Edema Neurological: Alert, Oriented, CN II-XII Intact, Normal Cognition, Normal Gait, No Motor/Sensory Deficits Psychiatric: Anxious, Depressed Mood Skin Exam: Warm, Dry, Intact, Normal Color, No Rash EKG INTERPRETATION EKG Date: 03/28/18 Time: 07:55 Rhythm: NSR () Rate (Beats/Min): 73 [place]: Normal P-Wave: Present QRS: Normal ST-T: Normal QT: Normal Comparison: No Change EKG Interpretation Comments: No acute ischemic changes. Course - Vital Signs Last Recorded V/S: Last Vital Signs Temp 36.0 C 03/28/18 07:43 Pulse 72 03/28/18 07:43 Resp 14 03/28/18 07:43 BP 116/76 03/28/18 07:43 Pulse Ox 99 03/28/18 07:43 - Orders/Labs/Meds Orders: Active Orders 24 hr Category Date Time Status EKG 12 Lead [EKG Documentation Completion] [RC] STAT Care 03/28/18 07:51 Active Peripheral IV Care [RC] . DIRECTED Care 03/28/18 07:51 Active Chest 1V Frontal [CR] Stat Exams 03/28/18 07:51 Taken Sodium Chloride 0.9% [Saline Flush] Med 03/28/18 07:51 Active 10 ml FLUSH ASDIRECTED PRN Peripheral IV Insertion Adult [OM.PC] Stat Oth 03/28/18 07:51 Ordered Medication Orders Sodium Chloride (Saline Flush) 10 ml FLUSH ASDIRECTED PRN PRN Reason: Keep Vein Open Last Admin: 03/28/18 07:57 Dose: 10 ml Labs: Laboratory Tests 03/28/18 03/28/18 03/28/18 Range/Units 08:03 08:03 08:03 WBC 13.2 H (5.0-10.0) 10^3/uL RBC 4.50 (4.2-5.4) 10^6/uL Hgb 14.3 (12.0-16.0) g/dL Hct 43.0 (37.0-47.0) % MCV 95.6 (80-100) fL MCH 31.8 (27.0-34.0) pg MCHC 33.3 (33.0-35.0) g/dL Plt Count 221 (150-450) 10^3/uL Neut % (Auto) 54.2 (42.2-75.2) % Lymph % (Auto) 35.6 (20.5-50.1) % Pepin % (Auto) 8.2 H (2-8) % Eos % (Auto) 1.8 (1.0-3.0) % Baso % (Auto) 0.2 (0.0-1.0) % D-Dimer, Quantitative < 100 (0-400) ng/mL Sodium 132 L (135-145) mmol/L Potassium 3.8 (3.6-5.0) mmol/L Chloride 97 L (101-111) mmol/L Carbon Dioxide 24.0 (21.0-31.0) mmol/L Anion Gap 14.8 BUN 14 (7-18) mg/dL Creatinine 0.5 L (0.6-1.3) mg/dL Est Cr Clr Drug Dosing 132.35 mL/min Estimated GFR (MDRD) > 60 BUN/Creatinine Ratio 28.00 Glucose 215 H (74-105) mg/dL Calcium 8.9 (8.4-10.2) mg/dl Total Bilirubin 0.5 (0.2-1.0) mg/dL AST 24 (10-42) IU/L ALT 29 (10-60) IU/L Alkaline Phosphatase 82 (42-121) IU/L Troponin I < 0.02 (0.00-0.02) ng/ml Total Protein 6.9 (6.7-8.2) g/dl Albumin 4.0 (3.2-5.5) g/dl Globulin 2.9 Albumin/Globulin Ratio 1.38 Amylase 87 (28-100) U/L Lipase 138 H (22-51) U/L Meds: Medications Generic Name Dose Route Start Last Admin Trade Name Freq PRN Reason Stop Dose Admin Sodium Chloride 10 ml 03/28/18 07:51 03/28/18 07:57 Saline Flush FLUSH 10 ml ASDIRECTED PRN Administration Keep Vein Open Discontinued Medications Generic Name Dose Route Start Last Admin Trade Name Ousmaneq PRN Reason Stop Dose Admin Aspirin 324 mg 03/28/18 07:52 03/28/18 07:56 Aspirin PO 03/28/18 07:53 324 mg ONETIME ONE Administration - Radiology Interpretation Free Text/Narrative:: CXR: no acute consolidations; see Rad. report. Departure - Departure Time of Disposition: 08:41 Disposition: Home, Self-Care 01 Condition: Good Clinical Impression: Chest pain Qualifiers: Chest pain type: pleurodynia Qualified Code(s): R07.81 - Pleurodynia Instructions: Nonspecific Chest Pain, [id number] Forms: ED Department Discharge Additional Instructions: Continue your current medications as prescribed. Follow up in clinic with your doctor for recheck and further evaluation in the next 3 to 5 days. Return to ER if worse at any time. - My Orders Last 24 Hours: My Active Orders 03/28/18 07:51 EKG 12 Lead [EKG Documentation Completion] [RC] STAT Peripheral IV Care [RC] . DIRECTED Chest 1V Frontal [CR] Stat Sodium Chloride 0.9% [Saline Flush] 10 ml FLUSH ASDIRECTED PRN Peripheral IV Insertion Adult [OM.PC] Stat - Assessment/Plan Last 24 Hours: My Active Orders 03/28/18 07:51 EKG 12 Lead [EKG Documentation Completion] [RC] STAT Peripheral IV Care [RC] . DIRECTED Chest 1V Frontal [CR] Stat Sodium Chloride 0.9% [Saline Flush] 10 ml FLUSH ASDIRECTED PRN Peripheral IV Insertion Adult [OM.PC] Stat
[2018-03-28] MEDS ORDERED: Aspirin 81 MG Tab.Chew PO ONE (07:52)
[2018-03-28 08:10] VITALS: BP 116/76
[2018-03-28 08:30] LABS: CHLORIDE,CL 97 mmol/L (101-111); SODIUM,NA 132 mmol/L (135-145)
--- NOTE | 2018-03-28 08:49 | CR ---
Clinical history: 47-year-old female with chest pain. Interpretation: Chronic accentuation bronchovascular markings but subtle relative increased prominence of cardiac jaylyn houette and mild pulmonary venous congestion when compared to 13 Apr 2016 exam. No alveolar edema or dependent pleural effusion but trace of fluid in the minor fissure also worrisome. BNP? EKG? No lung mass, hilar lymphadenopathy or focal lobar pneumonia. No pneumothorax or free subdiaphragmatic air. CONCLUSION: Subtle change since March 2016 exam. (See above)
--- NOTE | 2018-04-01 07:41 | EKG ---
03/28/2018- DAYSI BREWER PAMELLA - FINDINGS: A 12-lead EKG shows normal sinus rhythm. No significant ST elevation or ST depression noted on this 12-lead EKG. Nonspecific ST-T wave changes noted on lead aVR. [facility] /[id number]
== END 2018-03-28 09:00 | disposition home or self-care (01) ==
LOC: DL.ED 07:40
DX: R07.81 Pleurodynia (principal); J44.9 Chronic obstructive pulmonary disease, unspecified; E11.40 Type 2 diabetes mellitus with diabetic neuropathy, unspecified; E66.9 Obesity, unspecified; I11.0 Hypertensive heart disease with heart failure; I50.9 Heart failure, unspecified; F17.210 Nicotine dependence, cigarettes, uncomplicated; Z88.6 Allergy status to analgesic agent; Z79.899 Other long term (current) drug therapy
CPT/HCPCS: 36415; 71045; 80053; 82150; 83690; 84484; 85025; 85379; 93005; 93010; 99285; A9270; J7050

== ENCOUNTER 2018-11-25 14:33 | Emergency (ER) | payer MEDICARE, MEDICAID ==
[2018-11-25 14:42] VITALS: BP 130/70
--- NOTE | 2018-11-25 14:48 | EDM.PDOC ---
ED HPI GENERAL MEDICAL PROBLEM - General Chief Complaint: Upper Extremity Injury/Pain Stated Complaint: might need aleisha [phone] Time Seen by Provider: 11/25/18 14:48 Source of Information: Reports: Patient, RN, RN Notes Reviewed History Limitations: Reports: No Limitations - History of Present Illness INITIAL COMMENTS - FREE TEXT/NARRATIVE: Pt presents to ER with c/o laceration to distal tip of left thumb on a kitchen knife while cutting cabbage. Denies any other injury. Pt states that he Tetanus vaccine was last received less than 5 years ago. Onset: Today Duration: Constant Location: Reports: Upper Extremity, Left Quality: Reports: Ache Severity: Mild Improves with: Reports: None Worsens with: Reports: None Associated Symptoms: Reports: No Other Symptoms - Related Data Allergies Allergy/AdvReac Type Severity Reaction Status Date / Time levofloxacin [From Levaquin] Allergy Blurred Verified 11/25/18 14:40 Vision tramadol Allergy Nausea Verified 11/25/18 14:40 Home Meds: Home Meds Aspirin [[place] Aspirin] 81 mg PO BEDTIME 12/18/13 [History] DULoxetine [Cymbalta] 60 mg PO DAILY 12/18/13 [History] Levothyroxine Sodium [Synthroid] 175 mcg PO DAILY 12/18/13 [History] Loratadine [Allergy] 10 mg PO BEDTIME 12/18/13 [History] Multivitamin [Multi-Vitamin Daily] 1 each PO DAILY 12/18/13 [History] atorvaSTATin Calcium [Atorvastatin Calcium] 20 mg PO DAILY 12/18/13 [History] Lisinopril [Prinivil] 10 mg PO DAILY 09/05/14 [History] sitaGLIPtin Phos/Metformin HCl [Janumet 50-1,000 MG] 1 each PO BID 10/19/14 [ History] Folic Acid 1 mg PO DAILY 02/06/15 [History] Methotrexate 2.5 mg PO Q7D 02/06/15 [History] Albuterol Sulfate [Proair Respiclick] 90 mcg IH Q6HR PRN 11/24/16 [History] Fluticasone Propionate [Flonase] 50 mcg NASBOTH DAILY PRN 11/24/16 [History] Polyethylene Glycol 3350 [MiraLAX] 17 gm PO DAILY PRN 11/24/16 [History] Albuterol/Ipratropium [DuoNeb 3.0-0.5 MG/3 ML] 3 ml NEB Q6HR PRN #30 neb [Rx] Tocilizumab [Actemra] 1 dose IV ASDIRECTED 01/17/17 [History] Acetaminophen/HYDROcodone [[place] 325-10 MG] 1 tab PO QID PRN 10/17/17 [History] Calcium Carbonate/Vitamin D3 [Calcium 500-Vit D3 600 Caplet] 1 each PO DAILY [History] Docusate Sodium 100 mg PO ASDIRECTED 10/17/17 [History] Pregabalin [Lyrica] 150 mg PO TID 10/17/17 [History] Hydrocodone/Acetaminophen [Hydrocodon-Acetaminophn 10-325] 1 tab PO DAILY [History] Varenicline Tartrate [Chantix] 1 mg PO DAILY 03/28/18 [History] oxyCODONE HCl [Oxycontin] 15 mg PO DAILY 03/28/18 [History] Past Medical History - Past Health History Medical/Surgical History: Denies Medical/Surgical History HEENT History: Reports: Impaired Vision Cardiovascular History: Reports: High Cholesterol, Hypertension Respiratory History: Reports: Asthma, COPD, Other (See Below) Other Respiratory History: Pneumonia Gastrointestinal History: Reports: Chronic Constipation, GI Bleed Other Gastrointestinal History: ischemic colitis Genitourinary History: Reports: None 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: Musculoskeletal History: Reports: Back Pain, Chronic, Fracture, Fibromyalgia, Osteoarthritis, RA Neurological History: Reports: Neuropathy, Diabetic, TIA Psychiatric History: Reports: Anxiety, Depression Endocrine/Metabolic History: Reports: Diabetes, Type II, Hypothyroidism, Obesity /BMI 30+ Hematologic History: Reports: Folic Acid Immunologic History: Reports: None Oncologic (Cancer) History: Reports: None Dermatologic History: Reports: None - Infectious Disease History Infectious Disease History: Reports: Chicken Pox Other Infectious Disease History: chicken pox when a kid - Past Surgical History Head Surgeries/Procedures: Reports: None GI Surgical History: Reports: Hernia Repair/Other Female Surgical History: Reports: Section, Hysterectomy Social & Family History - Family History Family Medical History: Noncontributory HEENT: Reports: Glaucoma, Other (See Below) Other HEENT Family History: aunt glaucoma Cardiac: Reports: Heart Failure, High Cholesterol, Hypertension, Other (See Below) Other Cardiac Family History: Mother has high cholesterol and hypertension. Maternal grandmother heart failure. Respiratory: Reports: Asthma, COPD OBGYN: Reports: Musculoskeletal: Reports: Arthritis, Back pain, Chronic, Osteoarthritis Endocrine/Metabolic: Reports: Diabetes, type II Oncologic: Reports: Breast, Lung - Tobacco Use Smoking Status *Q: Current Every Day Smoker Years of Tobacco use: 32 Packs/Tins Daily: 1 Second Hand Smoke Exposure: No - Caffeine Use Caffeine Use: Reports: Coffee - Recreational Drug Use Recreational Drug Use: No - Sexual History Sexual History: Reports: Sexually Active - Living Situation & Occupation Living situation: Reports: with Family Occupation: Disabled Review of Systems - Review of Systems Review Of Systems: ROS reveals no pertinent complaints other than HPI. ED EXAM, GENERAL - Physical Exam Exam: See Below Exam Limited By: No Limitations General Appearance: Alert, WD/WN, No Apparent Distress Throat/Mouth: Normal Voice, No Airway Compromise Head: Atraumatic, Normocephalic Neck: Normal Inspection Respiratory/Chest: No Respiratory Distress Extremities: Normal Range of Motion, Normal Capillary Refill, Other (0.6cm [place]. superficial flap laceration to distal tip of left thumb) Neurological: Alert, Oriented, No Motor/Sensory Deficits Psychiatric: Normal Mood Skin Exam: Warm, Dry Course - Vital Signs Last Recorded V/S: Last Vital Signs Temp 35.7 C 11/25/18 14:41 Pulse 82 11/25/18 14:41 Resp 18 11/25/18 14:41 BP 130/70 11/25/18 14:41 Pulse Ox 97 11/25/18 14:41 - Re-Assessments/Exams Free Text/Narrative Re-Assessment/Exam: 11/25/18 14:59 No procedural wound care by physician. Dermabond applied by RN. Departure - Departure Time of Disposition: 15:00 Disposition: Home, Self-Care 01 Condition: Good Clinical Impression: Laceration of left thumb Qualifiers: Encounter type: initial encounter Damage to nail status: without damage Foreign body presence: without foreign body Qualified Code(s): S61.012A - Laceration without foreign body of left thumb without damage to nail, initial encounter - Discharge Information *PRESCRIPTION DRUG MONITORING PROGRAM REVIEWED*: Not Applicable *COPY OF PRESCRIPTION DRUG MONITORING REPORT IN PATIENT FRANKY: Not Applicable Instructions: Stitches, [place], or Adhesive Wound Closure, [id number] Forms: ED Department Discharge Additional Instructions: Let the skin glue come off on its own (do not pick at it). Follow up in clinic if any further problems.
== END 2018-11-25 15:10 | disposition home or self-care (01) ==
LOC: DL.ED 14:33
DX: S61.012A Laceration without foreign body of left thumb without damage to nail, initial encounter (principal); E78.00 Pure hypercholesterolemia, unspecified; I10 Essential (primary) hypertension; J44.9 Chronic obstructive pulmonary disease, unspecified; F17.210 Nicotine dependence, cigarettes, uncomplicated; F41.9 Anxiety disorder, unspecified; F32.9 Major depressive disorder, single episode, unspecified; E11.9 Type 2 diabetes mellitus without complications; E03.9 Hypothyroidism, unspecified; W45.8XXA Other foreign body or object entering through skin, initial encounter; Z88.1 Allergy status to other antibiotic agents; Z88.5 Allergy status to narcotic agent; Z79.82 Long term (current) use of aspirin; Z79.899 Other long term (current) drug therapy; Z79.84 Long term (current) use of oral hypoglycemic drugs
CPT/HCPCS: 12001; 99282; 99283

== ENCOUNTER 2019-02-15 11:42 | Emergency (ER) | payer MEDICARE, MEDICAID ==
[2019-02-15 12:04] VITALS: BP 142/72
--- NOTE | 2019-02-15 12:44 | EDM.PDOC ---
ED HPI GENERAL MEDICAL PROBLEM - General Chief Complaint: ENT Problem Stated Complaint: SWOLLEN NOSE Time Seen by Provider: 02/15/19 12:37 Source of Information: Reports: Patient History Limitations: Reports: No Limitations - History of Present Illness INITIAL COMMENTS - FREE TEXT/NARRATIVE: Patient comes emergency Department today with complaints of sinus pain and congestion and a swollen nose. She woke up yesterday with quite a bit of sinus pressure and congestion. Her nose today is very swollen on the bridge and painful. She has had no recent falls traumas or injury to the area. She has quite a bit of clear drainage from her nose. Her eyes are puffy. She has been sneezing and watery eyes. She does have quite a history of recurrent sinusitis. She has never had a CT scan of her sinuses. Nose Pain Score (Numeric/FACES): 6 - Related Data Allergies Allergy/AdvReac Type Severity Reaction Status Date / Time levofloxacin [From Levaquin] Allergy Blurred Verified 02/15/19 12:04 Vision tramadol Allergy Nausea Verified 02/15/19 12:04 Home Meds: Home Meds Aspirin [[place] Aspirin] 81 mg PO BEDTIME 12/18/13 [History] DULoxetine [Cymbalta] 30 mg PO DAILY 12/18/13 [History] Levothyroxine Sodium [Synthroid] 150 mcg PO DAILY 12/18/13 [History] Multivitamin [Multi-Vitamin Daily] 1 each PO DAILY 12/18/13 [History] atorvaSTATin Calcium [Atorvastatin Calcium] 20 mg PO DAILY 12/18/13 [History] Lisinopril [Prinivil] 10 mg PO DAILY 09/05/14 [History] sitaGLIPtin Phos/Metformin HCl [Janumet 50-1,000 MG] 1 each PO BID 10/19/14 [ History] Folic Acid 1 mg PO DAILY 02/06/15 [History] Albuterol Sulfate [Proair Respiclick] 90 mcg IH Q6HR PRN 11/24/16 [History] Fluticasone Propionate [Flonase] 50 mcg NASBOTH DAILY PRN 11/24/16 [History] Polyethylene Glycol 3350 [MiraLAX] 17 gm PO DAILY PRN 11/24/16 [History] Albuterol/Ipratropium [DuoNeb 3.0-0.5 MG/3 ML] 3 ml NEB Q6HR PRN #30 neb [Rx] Tocilizumab [Actemra] 1 dose IV ASDIRECTED 01/17/17 [History] Calcium Carbonate/Vitamin D3 [Calcium 500-Vit D3 600 Caplet] 1 each PO DAILY [History] Docusate Sodium 100 mg PO ASDIRECTED 10/17/17 [History] Pregabalin [Lyrica] 150 mg PO TID 10/17/17 [History] Hydrocodone/Acetaminophen [Hydrocodon-Acetaminophn 10-325] 1 tab PO DAILY [History] oxyCODONE HCl [Oxycontin] 15 mg PO DAILY 03/28/18 [History] Past Medical History - Past Health History Medical/Surgical History: Denies Medical/Surgical History HEENT History: Reports: Impaired Vision Cardiovascular History: Reports: High Cholesterol, Hypertension Respiratory History: Reports: Asthma, COPD, Other (See Below) Other Respiratory History: Pneumonia Gastrointestinal History: Reports: Chronic Constipation, GI Bleed Other Gastrointestinal History: ischemic colitis Genitourinary History: Reports: None 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: Musculoskeletal History: Reports: Back Pain, Chronic, Fracture, Fibromyalgia, Osteoarthritis, RA Neurological History: Reports: Neuropathy, Diabetic, TIA Psychiatric History: Reports: Anxiety, Depression Endocrine/Metabolic History: Reports: Diabetes, Type II, Hypothyroidism, Obesity /BMI 30+ Hematologic History: Reports: Folic Acid Immunologic History: Reports: None Oncologic (Cancer) History: Reports: None Dermatologic History: Reports: None - Infectious Disease History Infectious Disease History: Reports: Chicken Pox Other Infectious Disease History: chicken pox when a kid - Past Surgical History Head Surgeries/Procedures: Reports: None GI Surgical History: Reports: Hernia Repair/Other Female Surgical History: Reports: Section, Hysterectomy Social & Family History - Family History Family Medical History: Noncontributory HEENT: Reports: Glaucoma, Other (See Below) Other HEENT Family History: aunt glaucoma Cardiac: Reports: Heart Failure, High Cholesterol, Hypertension, Other (See Below) Other Cardiac Family History: Mother has high cholesterol and hypertension. Maternal grandmother heart failure. Respiratory: Reports: Asthma, COPD OBGYN: Reports: Musculoskeletal: Reports: Arthritis, Back pain, Chronic, Osteoarthritis Endocrine/Metabolic: Reports: Diabetes, type II Oncologic: Reports: Breast, Lung - Tobacco Use Smoking Status *Q: Current Every Day Smoker Years of Tobacco use: 30 Packs/Tins Daily: 1 Second Hand Smoke Exposure: No - Caffeine Use Caffeine Use: Reports: Coffee, Soda - Recreational Drug Use Recreational Drug Use: No - Sexual History Sexual History: Reports: Sexually Active - Living Situation & Occupation Living situation: Reports: with Family Occupation: Disabled ED ROS ENT - Review of Systems Review Of Systems: ROS reveals no pertinent complaints other than HPI. ED EXAM, ENT - Physical Exam Exam: See Below Exam Limited By: No Limitations General Appearance: Alert, WD/WN, No Apparent Distress Eye Exam: Bilateral Eye: EOMI, PERRL, Other (She does have some mild swelling on the lower aspect of the eyelids. Nonerythematous.) Ears: Normal External Exam, Normal Canal, Normal TMs Nose: Nasal Deformity (On the inside of the nose is very erythematous swollen and it really appears that there are quite a few polyps versus some type of mass in the sinus. Primarily on the left side.), Nasal Discharge, Nasal Swelling , Nasal Tenderness, Injected Turbinates. No: Normal Inspection (There is generalized tenderness throughout the palpation of the nose. There is no bruising swelling bony deformity or ecchymosis. There is definitely some generalized swelling throughout the entirety of the nose on the external aspect. ) Mouth/Throat: Normal Inspection, Normal Gums, Normal Lips, Normal Oropharynx, Normal Teeth Head: Atraumatic, Normocephalic Neck: Normal Inspection, Supple, Non-Tender, Full Range of Motion Respiratory/Chest: No Respiratory Distress, Lungs Clear, No Accessory Muscle Use Cardiovascular: Normal Peripheral Pulses, Regular Rate, Rhythm GI/Abdominal: Normal Bowel Sounds, Soft, Non-Tender, No Abnormal Bruit Back: Normal Inspection, Full Range of Motion Extremities: Normal Inspection, Normal Range of Motion, Non-Tender, Normal Capillary Refill Neurological: Alert, Oriented, Normal Cognition, No Motor/Sensory Deficits Psychiatric: Normal Affect, Normal Mood Skin: Warm, Dry, Intact, Normal Color, No Rash Course - Vital Signs Last Recorded V/S: Last Vital Signs Temp 37.1 C 02/15/19 11:59 Pulse 79 02/15/19 11:59 Resp 16 02/15/19 11:59 BP 142/72 H 02/15/19 11:59 Pulse Ox 98 02/15/19 11:59 - Radiology Interpretation Free Text/Narrative:: CT scan with maxillary sinusitis as well as a concern of a possible polyp or cyst in the maxillary sinus. - Re-Assessments/Exams Free Text/Narrative Re-Assessment/Exam: 02/15/19 19:34 I reviewed the results of the CT scan of the sinuses about the bilateral maxillary sinusitis. Also the concerns for either a cyst or a polyp. This may be causing a lot of her recurrent sinusitis. ENT follow-up is recommended. We will send her home with some steroids and antibiotics and nasal saline rinses and Flonase. She is comfortable with this plan and her questions are answered. Departure - Departure Time of Disposition: 14:16 Disposition: Home, Self-Care 01 Clinical Impression: Maxillary polyp of sinus Maxillary sinusitis, acute Qualifiers: Recurrence: not specified as recurrent Qualified Code(s): J01.00 - Acute maxillary sinusitis, unspecified - Discharge Information Instructions: Sinusitis, Adult, [id number], Sinus Rinse, [id number] Forms: ED Department Discharge Additional Instructions: Nasal saline rise or Netti Pott OTC twice daily. Continue the flonase, 2 spray each nostril once daily for a week and then back to 1 spray each nostril daily. Augmentin, 1 tablet twice daily for the next 10 days. RX given to the patient. Prednisone 20mg a day for the next 5 days. Watch blood sugars closely. Return to the ED if new or worsening symptoms. Follow up with PCP in 10 days for recheck and referral to ENT due to the polyps vs cyst in the sinus. - Assessment/Plan Assessment:: Acute maxillary sinusitis. Left maxillary polyp vs cyst. Plan: Nasal saline rise or Netti Pott OTC twice daily. Continue the flonase, 2 spray each nostril once daily for a week and then back to 1 spray each nostril daily. Augmentin, 1 tablet twice daily for the next 10 days. RX given to the patient. Prednisone 20mg a day for the next 5 days. Watch blood sugars closely. Return to the ED if new or worsening symptoms. Follow up with PCP in 10 days for recheck and referral to ENT due to the polyps vs cyst in the sinus.
--- NOTE | 2019-02-15 14:04 | CT ---
Clinical history: 48-year-old female sinus pain/swelling and (erythema) nasopharynx. No known trauma or malignancies. Scan technique: Volume acquisition of data emergency unenhanced CT scan of the paranasal sinuses and facial bones obtained while the patient was lying supine on the Siemens multi slice CT scanner [place], [place]. All data archived in the PACS system for storage, reformatting axial/sagittal/coronal planes and study. Interpretation: 1. No foreign bodies. 2. Abnormal mucoperiosteal inflammation maxillary sinuses, dependent air-fluid level left maxillary antrum, and retention cyst or polyp (x2) within the right maxillary antra. Frontal, ethmoid, and sphenoid sinuses clear. 3. Nasal septum is straight in the midline. Symmetrically normal, nonedematous, nasal turbinates. Note: Subtle asymmetric anterior nasopharyngeal edema or masslike fullness, midline and to the right, above the epiglottis. Clinical correlation? Recommend ENT specialty follow-up. MRI may prove helpful. Smoker or tobacco chewer? 4. Symmetric normal pneumatization mastoid sinuses. 5. Satisfactory dental occlusion. Normal TMJs. Several molar teeth missing from the maxilla and mandible, posteriorly. 6. Symmetric normal salivary glands and no obvious cervical lymphadenopathy. 7. Chronic arthritic changes atlantoaxial joint. Upper cervical spine otherwise unremarkable. CONCLUSION: Bilateral maxillary sinusitis. Subtle asymmetric nasopharyngeal "fullness" or mass (see above).
== END 2019-02-15 14:20 | disposition home or self-care (01) ==
LOC: DL.ED 11:42
DX: J01.00 Acute maxillary sinusitis, unspecified (principal); M27.40 Unspecified cyst of jaw; E11.9 Type 2 diabetes mellitus without complications; E66.9 Obesity, unspecified; I10 Essential (primary) hypertension; F17.210 Nicotine dependence, cigarettes, uncomplicated; Z88.8 Allergy status to other drugs, medicaments and biological substances; Z79.899 Other long term (current) drug therapy
CPT/HCPCS: 70486; 99283-25

== ENCOUNTER 2019-03-12 22:39 | Emergency (ER) | payer MEDICARE, MEDICAID ==
--- NOTE | 2019-03-12 23:27 | EDM.PDOC ---
ED HPI GENERAL MEDICAL PROBLEM - General Chief Complaint: Lower Extremity Injury/Pain Stated Complaint: LEG MIGHT BE INFECTED Time Seen by Provider: 03/12/19 23:26 Source of Information: Reports: Patient History Limitations: Reports: No Limitations - History of Present Illness INITIAL COMMENTS - FREE TEXT/NARRATIVE: Sore on left leg getting worse more tender and painful. Marked area earlier today and redness extending beyond inked area. no fever or chills. RA hx, received IV infusion today. No hx of skin infections or MRSA. Area started with itching and white pus filled blister. Left Lower Anterior Leg Pain Score (Numeric/FACES): 6 - Related Data Allergies Allergy/AdvReac Type Severity Reaction Status Date / Time levofloxacin [From Levaquin] Allergy Blurred Verified 02/15/19 12:04 Vision tramadol Allergy Nausea Verified 02/15/19 12:04 Home Meds: Home Meds Aspirin [[place] Aspirin] 81 mg PO BEDTIME 12/18/13 [History] DULoxetine [Cymbalta] 30 mg PO DAILY 12/18/13 [History] Levothyroxine Sodium [Synthroid] 150 mcg PO DAILY 12/18/13 [History] Multivitamin [Multi-Vitamin Daily] 1 each PO DAILY 12/18/13 [History] atorvaSTATin Calcium [Atorvastatin Calcium] 20 mg PO DAILY 12/18/13 [History] Lisinopril [Prinivil] 10 mg PO DAILY 09/05/14 [History] sitaGLIPtin Phos/Metformin HCl [Janumet 50-1,000 MG] 1 each PO BID 10/19/14 [ History] Folic Acid 1 mg PO DAILY 02/06/15 [History] Albuterol Sulfate [Proair Respiclick] 90 mcg IH Q6HR PRN 11/24/16 [History] Fluticasone Propionate [Flonase] 50 mcg NASBOTH DAILY PRN 11/24/16 [History] Polyethylene Glycol 3350 [MiraLAX] 17 gm PO DAILY PRN 11/24/16 [History] Albuterol/Ipratropium [DuoNeb 3.0-0.5 MG/3 ML] 3 ml NEB Q6HR PRN #30 neb [Rx] Tocilizumab [Actemra] 1 dose IV ASDIRECTED 01/17/17 [History] Calcium Carbonate/Vitamin D3 [Calcium 500-Vit D3 600 Caplet] 1 each PO DAILY [History] Docusate Sodium 100 mg PO ASDIRECTED 10/17/17 [History] Pregabalin [Lyrica] 150 mg PO TID 10/17/17 [History] Hydrocodone/Acetaminophen [Hydrocodon-Acetaminophn 10-325] 1 tab PO DAILY [History] oxyCODONE HCl [Oxycontin] 15 mg PO DAILY 03/28/18 [History] Past Medical History - Past Health History Medical/Surgical History: Denies Medical/Surgical History HEENT History: Reports: Impaired Vision Cardiovascular History: Reports: High Cholesterol, Hypertension Respiratory History: Reports: Asthma, COPD, Other (See Below) Other Respiratory History: Pneumonia Gastrointestinal History: Reports: Chronic Constipation, GI Bleed Other Gastrointestinal History: ischemic colitis Genitourinary History: Reports: None 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: Musculoskeletal History: Reports: Back Pain, Chronic, Fracture, Fibromyalgia, Osteoarthritis, RA Neurological History: Reports: Neuropathy, Diabetic, TIA Psychiatric History: Reports: Anxiety, Depression Endocrine/Metabolic History: Reports: Diabetes, Type II, Hypothyroidism, Obesity /BMI 30+ Hematologic History: Reports: Folic Acid Immunologic History: Reports: None Oncologic (Cancer) History: Reports: None Dermatologic History: Reports: None - Infectious Disease History Infectious Disease History: Reports: Chicken Pox Other Infectious Disease History: chicken pox when a kid - Past Surgical History Head Surgeries/Procedures: Reports: None GI Surgical History: Reports: Hernia Repair/Other Female Surgical History: Reports: Section, Hysterectomy Social & Family History - Family History Family Medical History: Noncontributory HEENT: Reports: Glaucoma, Other (See Below) Other HEENT Family History: aunt glaucoma Cardiac: Reports: Heart Failure, High Cholesterol, Hypertension, Other (See Below) Other Cardiac Family History: Mother has high cholesterol and hypertension. Maternal grandmother heart failure. Respiratory: Reports: Asthma, COPD OBGYN: Reports: Musculoskeletal: Reports: Arthritis, Back pain, Chronic, Osteoarthritis Endocrine/Metabolic: Reports: Diabetes, type II Oncologic: Reports: Breast, Lung - Caffeine Use Caffeine Use: Reports: Coffee, Soda - Sexual History Sexual History: Reports: Sexually Active - Living Situation & Occupation Living situation: Reports: with Family Occupation: Disabled Review of Systems - Review of Systems Review Of Systems: See Below Constitutional: Reports: No Symptoms Eyes: Reports: No Symptoms Ears: Reports: No Symptoms Nose: Reports: No Symptoms Mouth/Throat: Reports: No Symptoms Cardiovascular: Reports: No Symptoms GI/Abdominal: Reports: No Symptoms Musculoskeletal: Reports: Leg Pain (left lqateral calf) Skin: Reports: Lesions Neurological: Reports: No Symptoms ED EXAM, GENERAL - Physical Exam Exam: See Below Exam Limited By: No Limitations General Appearance: Alert, Mild Distress ( with movement or touch to area) Eye Exam: Bilateral Eye: EOMI Ears: Normal External Exam, Hearing Grossly Normal Nose: Normal Inspection Throat/Mouth: Normal Voice Head: Atraumatic Neck: Normal Inspection, Full Range of Motion Respiratory/Chest: No Respiratory Distress, Lungs Clear, Normal Breath Sounds Cardiovascular: Regular Rate, Rhythm, No Rub GI/Abdominal: Normal Bowel Sounds, Soft Extremities: Leg Pain (left), Other (380mm right calf, 410mm left calf) Neurological: Alert, Oriented, Normal Cognition Psychiatric: Normal Affect, Normal Mood Skin Exam: Warm, Dry, Other (3cm circular red area left lateral mid calf with punctate center) Course - Vital Signs Last Recorded V/S: Last Vital Signs Temp 97.5 F 03/12/19 23:57 Pulse 74 03/12/19 23:57 Resp 18 03/12/19 23:57 BP 101/48 L 03/12/19 23:57 Pulse Ox - Orders/Labs/Meds Labs: Laboratory Tests 03/12/19 03/12/19 Range/Units 23:43 23:43 WBC 10.9 H (5.0-10.0) 10^3/uL RBC 4.76 (4.2-5.4) 10^6/uL Hgb 14.8 (12.0-16.0) g/dL Hct 44.3 (37.0-47.0) % MCV 93.1 (80-100) fL MCH 31.1 (27.0-34.0) pg MCHC 33.4 (33.0-35.0) g/dL Plt Count 176 (150-450) 10^3/uL Neut % (Auto) 44.7 (42.2-75.2) % Lymph % (Auto) 44.4 (20.5-50.1) % [place] % (Auto) 8.9 H (2-8) % Eos % (Auto) 1.8 (1.0-3.0) % Baso % (Auto) 0.2 (0.0-1.0) % Sodium 138 (135-145) mmol/L Potassium 3.6 (3.6-5.0) mmol/L Chloride 104 (101-111) mmol/L Carbon Dioxide 23.0 (21.0-31.0) mmol/L Anion Gap 14.6 BUN 21 H (7-18) mg/dL Creatinine 0.5 L (0.6-1.3) mg/dL Est Cr Clr Drug Dosing 130.90 mL/min Estimated GFR (MDRD) > 60 BUN/Creatinine Ratio 42.00 Glucose 144 H (74-105) mg/dL Calcium 8.7 (8.4-10.2) mg/dl Total Bilirubin 0.6 (0.2-1.0) mg/dL AST 38 (10-42) IU/L ALT 60 (10-60) IU/L Alkaline Phosphatase 59 (42-121) IU/L Total Protein 6.6 L (6.7-8.2) g/dl Albumin 4.1 (3.2-5.5) g/dl Globulin 2.5 Albumin/Globulin Ratio 1.64 Meds: Medications Discontinued Medications Generic Name Dose Route Start Last Admin Trade Name Freq PRN Reason Stop Dose Admin Doxycycline Hyclate 100 mg 03/12/19 23:52 03/13/19 00:00 Vibramycin PO 03/12/19 23:53 100 mg ONETIME ONE Administration Departure - Departure Time of Disposition: 00:15 Disposition: Home, Self-Care 01 Condition: Good Clinical Impression: Cellulitis Qualifiers: Site of cellulitis: extremity Site of cellulitis of extremity: lower extremity Laterality: left Qualified Code(s): L03.116 - Cellulitis of left lower limb Rheumatoid arthritis Qualifiers: Rheumatoid arthritis location: unspecified site Rheumatoid factor presence: unspecified presence Qualified Code(s): M06.9 - Rheumatoid arthritis, unspecified - Discharge Information *PRESCRIPTION DRUG MONITORING PROGRAM REVIEWED*: No *COPY OF PRESCRIPTION DRUG MONITORING REPORT IN PATIENT FRANKY: No Instructions: Cellulitis, Adult Forms: ED Department Discharge Additional Instructions: tylenol or ibuprofen alternating every 4 hours as needed for discomfort warm pack to area recheck on Sunday sooner if febril continuedincrease in redness selling and pain doxycycline 100mg one twice daily for 10 days
[2019-03-12] MEDS ORDERED: Doxycycline 100 MG Cap PO ONE (23:52)
[2019-03-13 00:09] LABS: ANION GAP 14.6; CHLORIDE,CL 104 mmol/L (101-111); SODIUM,NA 138 mmol/L (135-145)
[2019-03-13 00:10] VITALS: BP 101/48; PULSE 74
== END 2019-03-13 00:15 | disposition home or self-care (01) ==
LOC: DL.ED 22:39
DX: L03.116 Cellulitis of left lower limb (principal); M06.9 Rheumatoid arthritis, unspecified; E78.00 Pure hypercholesterolemia, unspecified; I10 Essential (primary) hypertension; J44.9 Chronic obstructive pulmonary disease, unspecified; E11.40 Type 2 diabetes mellitus with diabetic neuropathy, unspecified; E03.9 Hypothyroidism, unspecified; Z79.82 Long term (current) use of aspirin; Z79.899 Other long term (current) drug therapy; Z88.1 Allergy status to other antibiotic agents; Z88.5 Allergy status to narcotic agent; Z79.84 Long term (current) use of oral hypoglycemic drugs
CPT/HCPCS: 36415; 80053; 85025; 99283; A9270; 99284

== ENCOUNTER 2019-03-15 13:59 | Emergency (ER) | payer MEDICARE, MEDICAID ==
[2019-03-15 14:16] VITALS: BP 106/66
[2019-03-15] MEDS ORDERED: Lidocaine 1% 30 ML SDV INJECT ONE (14:36)
[2019-03-15 15:05] LABS: ANION GAP 16.9; CHLORIDE,CL 101 mmol/L (101-111); SODIUM,NA 135 mmol/L (135-145)
--- NOTE | 2019-03-15 15:26 | CR ---
Clinical history: 48-year-old female with "skin abscess" ("dog hit with its tail"). Rule out osteomyelitis. Interpretation: No sign of foreign body, subcutaneous emphysema, or underlying inflammatory periostitis of the proximal fibula in the region of clinical concern, proximal left lower extremity. I.E. no current evidence of osteomyelitis. (Faint soft tissue calcifications, medial to the proximal tibia away from site of clinical concern) No sign of long bone tip/fib fracture. Tiny arthritic spur condylar tibial spine. No knee or ankle joint dislocation.
--- NOTE | 2019-03-16 10:56 | EDM.PDOC ---
Scribed by Pippa Gonzalez 03/15/19 [id number] for Dottie Joaquin NP ED HPI GENERAL MEDICAL PROBLEM - General Chief Complaint: Skin Complaint Stated Complaint: LEG PAIN GETTING WORST [phone] Time Seen by Provider: 03/15/19 14:25 Source of Information: Reports: Patient, RN, RN Notes Reviewed History Limitations: Reports: No Limitations - History of Present Illness INITIAL COMMENTS - FREE TEXT/NARRATIVE: Patient presents to ER with complaint of sore on right calf. This began on Sunday. She was seen in ER on Sunday and started on Doxycycline. She saw her primary on and cephalexin was added to that time. The sore is worsening. She complains of pain in the left leg described as "bone pain". She has night seats. There have been no chills or fever. Patient had infusion on Sunday of Solu-Medrol and Actemra for her RA. Onset: Gradual Duration: Getting Worse Location: Reports: Lower Extremity, Right Quality: Reports: Ache Severity: Moderate Improves with: Reports: None Worsens with: Reports: None Associated Symptoms: Reports: No Other Symptoms - Related Data Allergies Allergy/AdvReac Type Severity Reaction Status Date / Time levofloxacin [From Levaquin] Allergy Blurred Verified 03/15/19 14:16 Vision tramadol Allergy Nausea Verified 03/15/19 14:16 Home Meds: Home Meds Aspirin [[place] Aspirin] 81 mg PO BEDTIME 12/18/13 [History] DULoxetine [Cymbalta] 30 mg PO DAILY 12/18/13 [History] Levothyroxine Sodium [Synthroid] 150 mcg PO DAILY 12/18/13 [History] Multivitamin [Multi-Vitamin Daily] 1 each PO DAILY 12/18/13 [History] Lisinopril [Prinivil] 10 mg PO DAILY 09/05/14 [History] sitaGLIPtin Phos/Metformin HCl [Janumet 50-1,000 MG] 1 each PO BID 10/19/14 [ History] Albuterol Sulfate [Proair Respiclick] 90 mcg IH Q6HR PRN 11/24/16 [History] Fluticasone Propionate [Flonase] 50 mcg NASBOTH DAILY PRN 11/24/16 [History] Polyethylene Glycol 3350 [MiraLAX] 17 gm PO DAILY PRN 11/24/16 [History] Albuterol/Ipratropium [DuoNeb 3.0-0.5 MG/3 ML] 3 ml NEB Q6HR PRN #30 neb [Rx] Tocilizumab [Actemra] 1 dose IV ASDIRECTED 01/17/17 [History] Calcium Carbonate/Vitamin D3 [Calcium 500-Vit D3 600 Caplet] 1 each PO DAILY [History] Docusate Sodium 100 mg PO ASDIRECTED 10/17/17 [History] Pregabalin [Lyrica] 150 mg PO TID 10/17/17 [History] Hydrocodone/Acetaminophen [Hydrocodon-Acetaminophn 10-325] 1 tab PO BID [History] oxyCODONE HCl [Oxycontin] 15 mg PO DAILY 03/28/18 [History] Past Medical History - Past Health History Medical/Surgical History: Denies Medical/Surgical History HEENT History: Reports: Impaired Vision Cardiovascular History: Reports: High Cholesterol, Hypertension Respiratory History: Reports: Asthma, COPD, Other (See Below) Other Respiratory History: Pneumonia Gastrointestinal History: Reports: Chronic Constipation, GI Bleed Other Gastrointestinal History: ischemic colitis Genitourinary History: Reports: None 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: Musculoskeletal History: Reports: Back Pain, Chronic, Fracture, Fibromyalgia, Osteoarthritis, RA Neurological History: Reports: Neuropathy, Diabetic, TIA Psychiatric History: Reports: Anxiety, Depression Endocrine/Metabolic History: Reports: Diabetes, Type II, Hypothyroidism, Obesity /BMI 30+ Hematologic History: Reports: Folic Acid Immunologic History: Reports: None Oncologic (Cancer) History: Reports: None Dermatologic History: Reports: None - Infectious Disease History Infectious Disease History: Reports: Chicken Pox Other Infectious Disease History: chicken pox when a kid - Past Surgical History Head Surgeries/Procedures: Reports: None GI Surgical History: Reports: Hernia Repair/Other Female Surgical History: Reports: Section, Hysterectomy Social & Family History - Family History Family Medical History: Noncontributory HEENT: Reports: Glaucoma, Other (See Below) Other HEENT Family History: aunt glaucoma Cardiac: Reports: Heart Failure, High Cholesterol, Hypertension, Other (See Below) Other Cardiac Family History: Mother has high cholesterol and hypertension. Maternal grandmother heart failure. Respiratory: Reports: Asthma, COPD OBGYN: Reports: Musculoskeletal: Reports: Arthritis, Back pain, Chronic, Osteoarthritis Endocrine/Metabolic: Reports: Diabetes, type II Oncologic: Reports: Breast, Lung - Tobacco Use Smoking Status *Q: Current Every Day Smoker Years of Tobacco use: 35 Packs/Tins Daily: 0.7 - Caffeine Use Caffeine Use: Reports: Coffee, Soda - Sexual History Sexual History: Reports: Sexually Active - Living Situation & Occupation Living situation: Reports: with Family Occupation: Disabled ED ROS GENERAL - Review of Systems Review Of Systems: ROS reveals no pertinent complaints other than HPI. ED EXAM, SKIN/RASH Exam: See Below Exam Limited By: No Limitations General Appearance: Alert, WD/WN, No Apparent Distress Eye Exam: Bilateral Eye: EOMI, Normal Inspection, PERRL Ears: Normal External Exam, Normal Canal, Hearing Grossly Normal, Normal TMs Nose: Normal Inspection, Normal Mucosa, No Blood Throat/Mouth: Normal Inspection, Normal Lips, Normal Teeth, Normal Gums, Normal Oropharynx, Normal Voice, No Airway Compromise Head: Atraumatic, Normocephalic Neck: Normal Inspection, Supple, Non-Tender, Full Range of Motion Respiratory/Chest: No Respiratory Distress, Lungs Clear, Normal Breath Sounds, No Accessory Muscle Use, Chest Non-Tender Cardiovascular: Normal Peripheral Pulses, Regular Rate, Rhythm, No Edema, No Gallop, No JVD, No Murmur, No Rub GI/Abdominal: Normal Bowel Sounds, Soft, Non-Tender, No Organomegaly, No Distention, No Abnormal Bruit, No Mass (Female) Exam: Deferred Rectal (Female) Exam: Deferred Back Exam: Normal Inspection, Full Range of Motion, NT Extremities: Normal Inspection, Normal Range of Motion, Non-Tender, No Pedal Edema, Normal Capillary Refill Neurological: Alert Psychiatric: Normal Affect, Normal Mood Skin: Other (5 cm x 5 cm erythematous abscess on left lateral calf. ) Location, Skin: Lower Extremity, Left Associated features: Warmth, Tenderness, Swelling, Induration Lymphatic: No Adenopathy ED SKIN PROCEDURES - I&D Site: left lateral calf Skin Prep: Providone-Iodine (Betadine) Local Anesthesia: Lidocaine: 1% Plain Local Anesthetic Volume: 5cc Area Incised With: Needle Drainage: Purulent, Bloody, Moderate Amount Probed to Break Up Loculations: Yes Packed With: None Sterile Dressing: Other (Bandage) Complications: No Course - Vital Signs Last Recorded V/S: Last Vital Signs Temp 96.6 F 03/15/19 14:05 Pulse 81 03/15/19 14:05 Resp 16 03/15/19 14:05 BP 106/66 03/15/19 14:05 Pulse Ox 99 03/15/19 14:05 - Orders/Labs/Meds Orders: Active Orders 24 hr Category Date Time Status CULTURE WOUND [RM] Urgent Lab 03/15/19 15:50 Received Labs: Laboratory Tests 03/15/19 03/15/19 Range/Units 14:39 14:39 WBC 11.2 H (5.0-10.0) 10^3/uL RBC 5.35 (4.2-5.4) 10^6/uL Hgb 16.6 H D (12.0-16.0) g/dL Hct 49.1 H (37.0-47.0) % MCV 91.8 (80-100) fL MCH 31.0 (27.0-34.0) pg MCHC 33.8 (33.0-35.0) g/dL Plt Count 204 (150-450) 10^3/uL Neut % (Auto) 42.2 (42.2-75.2) % Lymph % (Auto) 46.0 (20.5-50.1) % [place] % (Auto) 8.8 H (2-8) % Eos % (Auto) 2.7 (1.0-3.0) % Baso % (Auto) 0.3 (0.0-1.0) % Sodium 135 (135-145) mmol/L Potassium 3.9 (3.6-5.0) mmol/L Chloride 101 (101-111) mmol/L Carbon Dioxide 21.0 (21.0-31.0) mmol/L Anion Gap 16.9 BUN 16 (7-18) mg/dL Creatinine 0.5 L (0.6-1.3) mg/dL Est Cr Clr Drug Dosing 130.90 mL/min Estimated GFR (MDRD) > 60 BUN/Creatinine Ratio 32.00 Glucose 96 (74-105) mg/dL Calcium 9.4 (8.4-10.2) mg/dl Total Bilirubin 0.8 (0.2-1.0) mg/dL AST 40 (10-42) IU/L ALT 57 (10-60) IU/L Alkaline Phosphatase 75 (42-121) IU/L Total Protein 7.2 (6.7-8.2) g/dl Albumin 4.7 (3.2-5.5) g/dl Globulin 2.5 Albumin/Globulin Ratio 1.88 Meds: Medications Discontinued Medications Generic Name Dose Route Start Last Admin Trade Name Freq PRN Reason Stop Dose Admin Lidocaine HCl 30 ml 03/15/19 14:36 03/15/19 14:42 Xylocaine-Mpf 1% INJECT 03/15/19 14:37 30 ml ONETIME ONE Administration - Radiology Interpretation Free Text/Narrative:: Tib and fib x-ray: No sign of long bone tip/fib fracture. Tiny arthritic spur condylar tibial spine. No knee or ankle joint dislocation. See rad report. Departure - Departure Time of Disposition: 15:53 Disposition: Home, Self-Care 01 Condition: Fair Clinical Impression: Abscess - Discharge Information *PRESCRIPTION DRUG MONITORING PROGRAM REVIEWED*: No *COPY OF PRESCRIPTION DRUG MONITORING REPORT IN PATIENT FRANKY: No Instructions: Skin Abscess, [id number] Forms: ED Department Discharge Additional Instructions: Continue taking oral antibiotics If any worsening, fever, chills, return to the ER Otherwise, follow up with your primary care facility next week - My Orders Last 24 Hours: My Active Orders 03/15/19 15:50 CULTURE WOUND [RM] Urgent - Assessment/Plan Last 24 Hours: My Active Orders 03/15/19 15:50 CULTURE WOUND [RM] Urgent I have read and agree with the documentation that has been completed regarding this visit. By signing this record, I attest that the documentation was completed in my physical presence and is an accurate record of the encounter.
== END 2019-03-15 16:00 | disposition home or self-care (01) ==
LOC: DL.ED 13:59
DX: L02.416 Cutaneous abscess of left lower limb (principal); I10 Essential (primary) hypertension; E11.40 Type 2 diabetes mellitus with diabetic neuropathy, unspecified; M06.9 Rheumatoid arthritis, unspecified; M19.90 Unspecified osteoarthritis, unspecified site; E03.9 Hypothyroidism, unspecified; E66.9 Obesity, unspecified; F17.210 Nicotine dependence, cigarettes, uncomplicated; Z88.1 Allergy status to other antibiotic agents; Z88.5 Allergy status to narcotic agent; Z79.82 Long term (current) use of aspirin; Z79.899 Other long term (current) drug therapy; Z86.73 Personal history of transient ischemic attack (TIA), and cerebral infarction without residual deficits; Z90.710 Acquired absence of both cervix and uterus
CPT/HCPCS: 36415; 73590; 80053; 85025; 87070; 99283; J2001; 87077; 87186

== ENCOUNTER 2019-05-03 15:06 | Outpatient (CLI) | payer MEDICARE, MEDICAID ==
[2019-05-03 16:13] VITALS: BP 102/51; PULSE 82
[2019-05-03] MEDS ORDERED: Polyethylene Glycol/Electrolytes 4,000 ML Bottle PO ONE (18:59)
== END 2019-05-03 19:35 | disposition home or self-care (01) ==
LOC: DL.IVTHER 15:06 → DL.OPMEDS 15:06
PROVIDERS: ATTEND Family Medicine
DX: R19.5 Other fecal abnormalities (principal)
CPT/HCPCS: A9270-GY

== ENCOUNTER 2020-05-12 12:00 | Emergency (ER) | payer MEDICARE, MEDICAID ==
--- NOTE | 2020-05-12 12:40 | CR ---
EXAMINATION: Chest 1V Frontal SEX: Female AGE: 50 years CLINICAL HISTORY: 50-year-old female with CHEST PAIN. Interpretation: Reasonable inspiratory effort patient with large body habitus. Focal eventration right hemidiaphragm. Normal cardiac silhouette unchanged in size and configuration when compared back to 28 mar 2018. No pulmonary vascular congestion, cephalization of flow, alveolar edema or dependent pleural effusion. No new lung mass, hilar lymphadenopathy or focal lobar pneumonia. No atelectasis/collapse. No pneumothorax or pneumomediastinum. Midline tracheal bronchial airway unremarkable. CONCLUSION: No acute new cardiopulmonary abnormality since March 2018 CXR.
[2020-05-12 12:57] LABS: ANION GAP 12.6 mEq/L (7-13); CHLORIDE,CL 102 mmol/L (98-107); SODIUM,NA 138 mmol/L (136-145)
[2020-05-12] MEDS ORDERED: GI Cocktail Oral Solution 30 ML PO ONE (13:04)
--- NOTE | 2020-05-12 13:05 | EDM.PDOC ---
ED HPI GENERAL MEDICAL PROBLEM - General Chief Complaint: Chest Pain Stated Complaint: INCOMING/CHEST PAIN Time Seen by Provider: 05/12/20 13:05 Source of Information: Reports: Patient History Limitations: Reports: No Limitations - History of Present Illness INITIAL COMMENTS - FREE TEXT/NARRATIVE: Patient comes emergency department today from home with complaints of intermittent epigastric chest pain. For the past 3 to 4 days she has had 4 episodes where she suddenly develops a pressure sensation in the epigastric region. This pain continues and radiates up to the left side of her anterior chest into her left neck. This last for about 30 seconds and it resolves. She is doing nothing when these episodes come on. She is just sitting watching TV or eating. The pain resolves on its own. She has no shortness of breath diaphoresis nausea or vomiting with this. No weakness dizziness lightheadedness. No palpitations. The last time she had any pain was 10:00 last night. She has had no pain all day today and she feels just fine in the emergency department at this time. She denies any other abdominal pain. No hematuria dysuria or urinary frequency. No constipation. No cough congestion fever or chills. No syncope. No headache visual disturbances. Left Pain Score (Numeric/FACES): 5 - Related Data Allergies Allergy/AdvReac Type Severity Reaction Status Date / Time levofloxacin [From Levaquin] Allergy Blurred Verified 05/12/20 12:03 Vision tramadol Allergy Nausea Verified 05/12/20 12:03 Home Meds: Home Meds Aspirin [[place] Aspirin] 81 mg PO BEDTIME 12/18/13 [History] DULoxetine [Cymbalta] 30 mg PO DAILY 12/18/13 [History] Levothyroxine Sodium [Synthroid] 150 mcg PO DAILY 12/18/13 [History] Multivitamin [Multi-Vitamin Daily] 1 each PO DAILY 12/18/13 [History] lisinopriL [Prinivil] 10 mg PO DAILY 09/05/14 [History] sitaGLIPtin Phos/Metformin HCl [Janumet 50-1,000 MG] 1 each PO BID 10/19/14 [History] Albuterol Sulfate [Proair Respiclick] 90 mcg IH Q6HR PRN 11/24/16 [History] Fluticasone Propionate [Flonase] 50 mcg NASBOTH DAILY PRN 11/24/16 [History] Albuterol/Ipratropium [DuoNeb 3.0-0.5 MG/3 ML] 3 ml NEB Q6HR PRN #30 neb 11/26/16 [Rx] Tocilizumab [Actemra] 1 dose IV ASDIRECTED 01/17/17 [History] Calcium Carbonate/Vitamin D3 [Calcium 500-Vit D3 600 Caplet] 1 each PO DAILY 10/17/17 [History] Docusate Sodium 100 mg PO DAILY 10/17/17 [History] Pregabalin [Lyrica] 150 mg PO TID 10/17/17 [History] Hydrocodone/Acetaminophen [Hydrocodone-Acetamin 10-325 mg] 1 tab PO BID 03/28/18 [History] oxyCODONE HCl [Oxycontin] 15 mg PO BID 03/28/18 [History] Ezetimibe [Zetia] 10 mg PO DAILY 09/27/19 [History] Linaclotide [Linzess] 290 mcg PO DAILY 09/27/19 [History] Past Medical History - Past Health History Medical/Surgical History: Denies Medical/Surgical History HEENT History: Reports: Impaired Vision Cardiovascular History: Reports: High Cholesterol, Hypertension Respiratory History: Reports: Asthma, COPD, Other (See Below) Other Respiratory History: Pneumonia Gastrointestinal History: Reports: Chronic Constipation, GI Bleed Other Gastrointestinal History: ischemic colitis Genitourinary History: Reports: None 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: Musculoskeletal History: Reports: Back Pain, Chronic, Fracture, Fibromyalgia, Osteoarthritis, RA Neurological History: Reports: Neuropathy, Diabetic, TIA Psychiatric History: Reports: Anxiety, Depression Endocrine/Metabolic History: Reports: Diabetes, Type II, Hypothyroidism, Obesity/BMI 30+ Hematologic History: Reports: Folic Acid Immunologic History: Reports: None Oncologic (Cancer) History: Reports: None Dermatologic History: Reports: None - Infectious Disease History Infectious Disease History: Reports: MRSA Other Infectious Disease History: chicken pox when a kid - Past Surgical History Head Surgeries/Procedures: Reports: None GI Surgical History: Reports: Hernia Repair/Other Female Surgical History: Reports: Section, Hysterectomy Social & Family History - Family History Family Medical History: Noncontributory HEENT: Reports: Glaucoma, Other (See Below) Other HEENT Family History: aunt glaucoma Cardiac: Reports: Heart Failure, High Cholesterol, Hypertension, Other (See Below) Other Cardiac Family History: Mother has high cholesterol and hypertension. Shayne caal grandmother heart failure. Respiratory: Reports: Asthma, COPD OBGYN: Reports: Musculoskeletal: Reports: Arthritis, Back pain, Chronic, Osteoarthritis Endocrine/Metabolic: Reports: Diabetes, type II Oncologic: Reports: Breast, Lung - Tobacco Use Smoking Status *Q: Current Every Day Smoker Years of Tobacco use: 35 Packs/Tins Daily: 0.2 - Caffeine Use Caffeine Use: Reports: Coffee - Recreational Drug Use Recreational Drug Use: No - Sexual History Sexual History: Reports: Sexually Active - Living Situation & Occupation Living situation: Reports: with Family Occupation: Disabled ED ROS GENERAL - Review of Systems Review Of Systems: Comprehensive ROS is negative, except as noted in HPI. ED EXAM, GENERAL - Physical Exam Exam: See Below Exam Limited By: No Limitations General Appearance: Alert, WD/WN, No Apparent Distress Eye Exam: Bilateral Eye: EOMI, PERRL Ears: Normal External Exam Nose: Normal Inspection Throat/Mouth: Normal Inspection, Normal Oropharynx Head: Atraumatic, Normocephalic Neck: Normal Inspection, Supple, Non-Tender Respiratory/Chest: No Respiratory Distress, Lungs Clear, Normal Breath Sounds Cardiovascular: Normal Peripheral Pulses, Regular Rate, Rhythm Peripheral Pulses: 2+: Brachial (L), Brachial (R), Posterior Tibial (L), Posterior Tibial (R), Dorsalis Pedis (L), Dorsalis Pedis (R) GI/Abdominal: Normal Bowel Sounds, Soft, Tender (Mild tenderness to the epigastric region. Negative Stafford sign. NO guarding or rebound. Just Epigastric tenderness. ) (Female) Exam: Deferred Rectal (Female) Exam: Deferred Back Exam: Normal Inspection, Full Range of Motion Extremities: Normal Inspection, Normal Range of Motion, Non-Tender, Normal Capillary Refill Neurological: Alert, Oriented, Normal Cognition, No Motor/Sensory Deficits Psychiatric: Normal Affect, Normal Mood Skin Exam: Warm, Dry, Intact, Normal Color, No Rash EKG INTERPRETATION EKG Date: 05/12/20 Time: 12:06 Rhythm: NSR Rate (Beats/Min): 79 [place]: Normal P-Wave: Present QRS: Normal ST-T: Normal QT: Normal Course - Vital Signs Last Recorded V/S: Last Vital Signs Temp 97.5 F 05/12/20 13:29 Pulse 79 06/24/20 13:29 Resp 18 05/12/20 13:29 BP 104/60 05/12/20 13:29 Pulse Ox 97 05/12/20 13:29 - Orders/Labs/Meds Orders: Active Orders 24 hr Category Date Time Status EKG 12 Lead [EKG Documentation Completion] [RC] STAT Care 05/12/20 12:08 Active Labs: Laboratory Tests 05/12/20 05/12/20 Range/Units 12:19 12:19 WBC 7.9 (5.0-10.0) 10^3/uL RBC 5.02 (4.2-5.4) 10^6/uL Hgb 15.7 (12.0-16.0) g/dL Hct 46.9 (37.0-47.0) % MCV 93.4 (80-100) fL MCH 31.3 (27.0-34.0) pg MCHC 33.5 (33.0-35.0) g/dL Plt Count 171 (150-450) 10^3/uL Neut % (Auto) 44.6 (42.2-75.2) % Lymph % (Auto) 44.0 (20.5-50.1) % [place] % (Auto) 8.8 H (2-8) % Eos % (Auto) 2.3 (1.0-3.0) % Baso % (Auto) 0.3 (0.0-1.0) % Sodium 138 (136-145) mmol/L Potassium 4.6 (3.5-5.1) mmol/L Chloride 102 (98-107) mmol/L Carbon Dioxide 28 (21-32) mmol/L Anion Gap 12.6 (7-13) mEq/L BUN 13 (7-18) mg/dL Creatinine 0.83 (0.55-1.02) mg/dL Est Cr Clr Drug Dosing 77.10 mL/min Estimated GFR (MDRD) > 60 BUN/Creatinine Ratio 15.7 (No establ ref range) Glucose 149 H (74-99) mg/dL Calcium 8.7 (8.5-10.1) mg/dL Total Bilirubin 0.3 (0.2-1.0) mg/dL AST 21 (15-37) U/L ALT 55 (14-59) U/L Alkaline Phosphatase 52 (46-116) U/L Troponin I < 0.017 (0.000-0.056) ng/mL Total Protein 6.9 (6.4-8.2) g/dL Albumin 4.2 (3.4-5.0) g/dL Globulin 2.7 Albumin/Globulin Ratio 1.6 TSH, Ultra Sensitive 1.10 (0.36-3.74) uIU/mL Meds: Medications Discontinued Medications Generic Name Dose Route Start Last Admin Trade Name Col[place] PRN Reason Stop Dose Admin Al Hydroxide/Mg Hydroxide 30 ml 05/12/20 13:04 05/12/20 13:29 Gi Cocktail PO 05/12/20 13:05 30 ml ONETIME ONE Administration - Radiology Interpretation Free Text/Narrative:: Chest x-ray negative for any acute pathology per radiology. - Re-Assessments/Exams Free Text/Narrative Re-Assessment/Exam: 05/12/20 14:36 The patient was not having any symptoms on arrival. I did give her a GI cocktail she states she feels better after the GI Cocktial. EKG and troponin negative. I did reexamine her abdomen which is now not tender in the epigastric region. Her abdomen is soft nontender nondistended. With her intermittent symptoms over the past couple of days her negative troponin and EKG and improvement after the GI cocktail treat her for GERD. I will place her on Carafate for the next 28 days 4 times a day and Prilosec for the next 28 days. If she has any recurrence she needs to see her primary care and look at an EGD or other follow-up. We do not keep people on Prilosec or PPIs for long-term anymore. She is understanding this and her questions are answered. Departure - Departure Time of Disposition: 14:38 Disposition: Home, Self-Care 01 Clinical Impression: Non-cardiac chest pain Gastroesophageal reflux disease Qualifiers: Esophagitis presence: esophagitis presence not specified Qualified Code(s): K21.9 - Gastro-esophageal reflux disease without esophagitis Instructions: Gastroesophageal Reflux Disease, Adult, [id number], Nonspecific Chest Pain, Adult, [id number] Forms: ED Department Discharge Additional Instructions: OTC Maalox or Mylanta for acute episodes. Carafate 1 tablet 4 times a day, before meals and bedtime. RX given to the patient. Prilosec 1 capsule daily for the next 28 days. RX given to the patient. If chest pain does not resolve with the above therapy recheck clinic or ED at anytime. Return to the ED if new or worsening symptoms. Follow up with PCP in the 6 days sooner if worse or not improving. Sepsis Event Note (ED) - Evaluation Sepsis Screening Result: No Definite Risk - Focused Exam Vital Signs: Vital Signs Temp Pulse Resp BP Pulse Ox 05/12/20 13:29 97.5 F 79 18 104/60 97 05/12/20 12:00 95.6 F L 78 18 111/69 98 - My Orders Last 24 Hours: My Active Orders 05/12/20 12:08 EKG 12 Lead [EKG Documentation Completion] [RC] STAT - Assessment/Plan Last 24 Hours: My Active Orders 05/12/20 12:08 EKG 12 Lead [EKG Documentation Completion] [RC] STAT Assessment:: GERD Non-cardiac chest pain, most likely GERD.
[2020-05-12 13:31] VITALS: BP 104/60; PULSE 79
[2020-05-12] MEDS ORDERED: Omeprazole 20 MG Cap.CR PO ONE (14:40)
== END 2020-05-12 15:00 | disposition home or self-care (01) ==
LOC: DL.ED 12:00
DX: K21.9 Gastro-esophageal reflux disease without esophagitis (principal); R07.89 Other chest pain; I10 Essential (primary) hypertension; E11.40 Type 2 diabetes mellitus with diabetic neuropathy, unspecified; F41.9 Anxiety disorder, unspecified; F32.9 Major depressive disorder, single episode, unspecified; E03.9 Hypothyroidism, unspecified; F17.210 Nicotine dependence, cigarettes, uncomplicated; Z88.5 Allergy status to narcotic agent; Z88.8 Allergy status to other drugs, medicaments and biological substances; Z79.82 Long term (current) use of aspirin; Z79.899 Other long term (current) drug therapy; E66.9 Obesity, unspecified; Z68.34 Body mass index [BMI] 34.0-34.9, adult
CPT/HCPCS: 36415; 71045; 80053; 84443; 84484; 85025; 93005; 99285; A9270

== ENCOUNTER 2020-05-28 15:24 | Emergency (ER) | payer MEDICARE, MEDICAID ==
[2020-05-28 15:39] VITALS: BP 112/52; PULSE 85
--- NOTE | 2020-05-28 16:27 | EDM.PDOC ---
Scribed by Pippa Gonzalez 05/28/20 [id number] for Hardik Jefferson NP ED HPI GENERAL MEDICAL PROBLEM - General Chief Complaint: Back Pain or Injury Stated Complaint: MUSCLE STRAIN BACK Time Seen by Provider: 05/28/20 15:50 Source of Information: Reports: Patient, RN, RN Notes Reviewed History Limitations: Reports: No Limitations - History of Present Illness INITIAL COMMENTS - FREE TEXT/NARRATIVE: A 50-year-old female who presents to the ER with lower back pain x1 day. Patient reports picking up some weight at home and must have turned wrong. She states this happened once 2 years ago. She describes it as a tight muscle in her lower back that are tense. She has tried ice and heat with ibuprofen with little relief. She states muscle relaxants really help her and she would like an RX for a muscle relaxer. She denies any further anesthesia. No other recent trauma. Onset: Today Duration: Getting Worse Location: Reports: Back Quality: Reports: Ache Severity: Moderate Improves with: Reports: None Worsens with: Reports: None Associated Symptoms: Reports: Other (ibuprofen) Lower Back Pain Score (Numeric/FACES): 8 - Related Data Allergies Allergy/AdvReac Type Severity Reaction Status Date / Time levofloxacin [From Levaquin] Allergy Blurred Verified 05/28/20 15:41 Vision tramadol Allergy Nausea Verified 05/28/20 15:41 Home Meds: Home Meds Aspirin [Ector Aspirin] 81 mg PO BEDTIME 12/18/13 [History] DULoxetine [Cymbalta] 30 mg PO DAILY 12/18/13 [History] Levothyroxine Sodium [Synthroid] 150 mcg PO DAILY 12/18/13 [History] Multivitamin [Multi-Vitamin Daily] 1 each PO DAILY 12/18/13 [History] lisinopriL [Prinivil] 10 mg PO DAILY 09/05/14 [History] sitaGLIPtin Phos/Metformin HCl [Janumet 50-1,000 MG] 1 each PO BID 10/19/14 [History] Albuterol Sulfate [Proair Respiclick] 90 mcg IH Q6HR PRN 11/24/16 [History] Fluticasone Propionate [Flonase] 50 mcg NASBOTH DAILY PRN 11/24/16 [History] Albuterol/Ipratropium [DuoNeb 3.0-0.5 MG/3 ML] 3 ml NEB Q6HR PRN #30 neb 11/26/16 [Rx] Tocilizumab [Actemra] 1 dose IV ASDIRECTED 01/17/17 [History] Calcium Carbonate/Vitamin D3 [Calcium 500-Vit D3 600 Caplet] 1 each PO DAILY 10/17/17 [History] Docusate Sodium 100 mg PO DAILY 10/17/17 [History] Pregabalin [Lyrica] 150 mg PO TID 10/17/17 [History] Hydrocodone/Acetaminophen [Hydrocodone-Acetamin 10-325 mg] 1 tab PO BID 03/28/18 [History] oxyCODONE HCl [Oxycontin] 15 mg PO BID 03/28/18 [History] Ezetimibe [Zetia] 10 mg PO DAILY 09/27/19 [History] Linaclotide [Linzess] 290 mcg PO DAILY 09/27/19 [History] Hydrocodone/Acetaminophen [Hydrocodone-Acetamin 10-325 mg] 1 each PO BID 05/28/20 [History] Linaclotide [Linzess] 290 mcg PO DAILY 05/28/20 [History] Omeprazole 20 mg PO DAILY 05/28/20 [History] Sucralfate 1 tab PO DAILY 05/28/20 [History] Varenicline Tartrate [Chantix] 1 mg PO DAILY 05/28/20 [History] Past Medical History - Past Health History Medical/Surgical History: Denies Medical/Surgical History HEENT History: Reports: Impaired Vision Cardiovascular History: Reports: High Cholesterol, Hypertension Respiratory History: Reports: Asthma, COPD, Other (See Below) Other Respiratory History: Pneumonia Gastrointestinal History: Reports: Chronic Constipation, GI Bleed Other Gastrointestinal History: ischemic colitis Genitourinary History: Reports: None 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: Musculoskeletal History: Reports: Back Pain, Chronic, Fracture, Fibromyalgia, Osteoarthritis, RA Neurological History: Reports: Neuropathy, Diabetic, TIA Psychiatric History: Reports: Anxiety, Depression Endocrine/Metabolic History: Reports: Diabetes, Type II, Hypothyroidism, Obesity/BMI 30+ Hematologic History: Reports: Folic Acid Immunologic History: Reports: None Oncologic (Cancer) History: Reports: None Dermatologic History: Reports: None - Infectious Disease History Infectious Disease History: Reports: Chicken Pox Other Infectious Disease History: chicken pox when a kid - Past Surgical History Head Surgeries/Procedures: Reports: None GI Surgical History: Reports: Hernia Repair/Other Female Surgical History: Reports: Section, Hysterectomy Social & Family History - Family History Family Medical History: Noncontributory HEENT: Reports: Glaucoma, Other (See Below) Other HEENT Family History: aunt glaucoma Cardiac: Reports: Heart Failure, High Cholesterol, Hypertension, Other (See Below) Other Cardiac Family History: Mother has high cholesterol and hypertension. Maternal grandmother heart failure. Respiratory: Reports: Asthma, COPD OBGYN: Reports: Musculoskeletal: Reports: Arthritis, Back pain, Chronic, Osteoarthritis Endocrine/Metabolic: Reports: Diabetes, type II Oncologic: Reports: Breast, Lung - Tobacco Use Smoking Status *Q: Current Every Day Smoker Years of Tobacco use: 30 Packs/Tins Daily: 0.5 - Caffeine Use Caffeine Use: Reports: Coffee - Recreational Drug Use Recreational Drug Use: No - Sexual History Sexual History: Reports: Sexually Active - Living Situation & Occupation Living situation: Reports: with Family Occupation: Disabled ED ROS GENERAL - Review of Systems Review Of Systems: Comprehensive ROS is negative, except as noted in HPI. ED EXAM,LOWER BACK PAIN/INJURY - Physical Exam Exam: See Below Exam Limited By: No Limitations General Appearance: Alert, WD/WN, No Apparent Distress Respiratory/Chest: No Respiratory Distress, Lungs Clear, Normal Breath Sounds, No Accessory Muscle Use, Chest Non-Tender Cardiovascular: Normal Peripheral Pulses, Regular Rate, Rhythm, No Edema, No Gallop, No JVD, No Murmur, No Rub Back Exam: Other (bilateral lower back muscles tender to palpation. No numbness or radiation down the back of the leg. ) Course - Vital Signs Last Recorded V/S: Last Vital Signs Temp 96.7 F L 05/28/20 15:36 Pulse 85 05/28/20 15:36 Resp 20 05/28/20 15:36 BP 112/52 L 05/28/20 15:36 Pulse Ox 98 05/28/20 15:36 - Re-Assessments/Exams Free Text/Narrative Re-Assessment/Exam: 05/28/20 15:59 RX: Flexeril 10mg t.i.d. as needed. Continue ice/heat 20 minutes every hour. Ibuprofen as needed for discomfort. Follow up with PCP if symptoms do not resolve. Instructions to return to ER reviewed with the patient. Departure - Departure Time of Disposition: 15:57 Disposition: Home, Self-Care 01 Condition: Good Clinical Impression: Low back pain, Muscle spasm - Discharge Information Instructions: Muscle Cramps and Spasms, [id number], Chronic Back Pain, [id number] Referrals: Annette Calderon MD [Primary Care Provider] - Forms: ED Department Discharge Additional Instructions: RX: Flexeril 10mg t.i.d. as needed. Continue ice/heat 20 minutes every hour. Ibuprofen as needed for discomfort. Follow up with PCP if symptoms do not resolve. Instructions to return to ER reviewed with the patient. Sepsis Event Note (ED) - Evaluation Sepsis Screening Result: No Definite Risk - Focused Exam Vital Signs: Vital Signs Temp Pulse Resp BP Pulse Ox 05/28/20 15:36 96.7 F L 85 20 112/52 L 98 I have read and agree with the documentation that has been completed regarding this visit. By signing this record, I attest that the documentation was completed in my physical presence and is an accurate record of the encounter.
== END 2020-05-28 16:03 | disposition home or self-care (01) ==
LOC: DL.ED 15:24
DX: M62.830 Muscle spasm of back (principal); I10 Essential (primary) hypertension; J44.9 Chronic obstructive pulmonary disease, unspecified; M06.9 Rheumatoid arthritis, unspecified; F41.9 Anxiety disorder, unspecified; F32.9 Major depressive disorder, single episode, unspecified; E11.40 Type 2 diabetes mellitus with diabetic neuropathy, unspecified; E03.9 Hypothyroidism, unspecified; E66.9 Obesity, unspecified; Z68.35 Body mass index [BMI] 35.0-35.9, adult; F17.210 Nicotine dependence, cigarettes, uncomplicated; Z88.5 Allergy status to narcotic agent; Z88.8 Allergy status to other drugs, medicaments and biological substances; Z79.82 Long term (current) use of aspirin; Z79.899 Other long term (current) drug therapy
CPT/HCPCS: 99283

== ENCOUNTER 2021-12-30 20:33 | Emergency (ER) | payer MEDICARE, MEDICAID ==
[2021-12-30] MEDS ORDERED: Sodium Chloride 0.9% 1,000 ML IV ONE ×2 (21:13→22:43)
[2021-12-30] MEDS ORDERED: Acetaminophen 500 MG Tab PO ONE (21:14)
[2021-12-30] MEDS ORDERED: Ondansetron 4 MG/2 ML SDV IVPUSH ONE (21:14)
[2021-12-30 21:33] LABS: ANION GAP 17.3 mEq/L (7-13); CHLORIDE,CL 100 mmol/L (98-107); SODIUM,NA 135 mmol/L (136-145)
[2021-12-30] MEDS ORDERED: Iopamidol 612 MG/ML 100 ML Bottle IVPUSH ONE (21:39)
[2021-12-30 21:54] LABS: CORONAVIRUS COVID-19 NAA POSITIVE (NEGATIVE)
[2021-12-30 22:59] VITALS: BP 130/67; PULSE 81
[2021-12-30] MEDS ORDERED: cefTRIAXone 2 GM in Sodium Chloride 0.9% 100 ML IV ONE (23:06)
[2021-12-30] MEDS ORDERED: metroNIDAZOLE/Normal Saline 500 MG in Premix Bag 100 BAG IV ONE (23:07)
[2021-12-31] MEDS ORDERED: Sodium Chloride 0.9% 1,000 ML IV ONE (00:01)
== END 2021-12-31 02:33 | disposition home or self-care (01) ==
LOC: DL.ED 20:33
DX: U07.1 COVID-19 (principal); K52.9 Noninfective gastroenteritis and colitis, unspecified; E11.9 Type 2 diabetes mellitus without complications; I10 Essential (primary) hypertension; M06.9 Rheumatoid arthritis, unspecified; E78.00 Pure hypercholesterolemia, unspecified; J44.9 Chronic obstructive pulmonary disease, unspecified; E03.9 Hypothyroidism, unspecified; E66.9 Obesity, unspecified; Z68.30 Body mass index [BMI] 30.0-30.9, adult; Z88.1 Allergy status to other antibiotic agents; Z88.5 Allergy status to narcotic agent; Z79.82 Long term (current) use of aspirin; Z79.899 Other long term (current) drug therapy; Z86.73 Personal history of transient ischemic attack (TIA), and cerebral infarction without residual deficits; Z72.0 Tobacco use
CPT/HCPCS: 0240U; 36415; 71045; 74018; 74177; 80053; 81003; 83605; 85025; 86140; 96365; 96367; 96375; 99284; A9270; J0696; J2405; J3490; J7030; Q9967

== ENCOUNTER 2022-01-01 10:32 | Emergency (ER) | payer MEDICARE, MEDICAID ==
[2022-01-01 11:00] VITALS: BP 112/71; PULSE 70
[2022-01-01] MEDS ORDERED: Sodium Chloride 0.9% 1,000 ML IV ONE (11:27)
[2022-01-01 11:47] LABS: ANION GAP 11.6 mEq/L (7-13); CHLORIDE,CL 104 mmol/L (98-107); SODIUM,NA 137 mmol/L (136-145)
== END 2022-01-01 13:49 | disposition home or self-care (01) ==
LOC: DL.ED 10:32
DX: K52.9 Noninfective gastroenteritis and colitis, unspecified (principal); E78.00 Pure hypercholesterolemia, unspecified; I10 Essential (primary) hypertension; J44.9 Chronic obstructive pulmonary disease, unspecified; M19.90 Unspecified osteoarthritis, unspecified site; E11.9 Type 2 diabetes mellitus without complications; E03.9 Hypothyroidism, unspecified; E66.9 Obesity, unspecified; Z68.33 Body mass index [BMI] 33.0-33.9, adult; Z88.1 Allergy status to other antibiotic agents; Z88.5 Allergy status to narcotic agent; Z79.82 Long term (current) use of aspirin; Z79.899 Other long term (current) drug therapy; Z72.0 Tobacco use
CPT/HCPCS: 36415; 80053; 81003; 83605; 85025; 85651; 86140; 99283; J7030

== ENCOUNTER 2022-07-24 18:46 | Emergency (ER) | payer MEDICARE, MEDICAID ==
[2022-07-24 19:17] VITALS: BP 109/67; PULSE 82
[2022-07-24] MEDS ORDERED: Sodium Chloride 0.9% 1,000 ML IV ONE (20:35)
== END 2022-07-24 22:40 | disposition home or self-care (01) ==
LOC: DL.ED 18:46
DX: K59.1 Functional diarrhea (principal); E86.0 Dehydration; F17.210 Nicotine dependence, cigarettes, uncomplicated; I10 Essential (primary) hypertension; J44.9 Chronic obstructive pulmonary disease, unspecified; E11.40 Type 2 diabetes mellitus with diabetic neuropathy, unspecified; E03.9 Hypothyroidism, unspecified; E78.00 Pure hypercholesterolemia, unspecified; F41.9 Anxiety disorder, unspecified; F32.A Depression, unspecified; E66.9 Obesity, unspecified; Z68.31 Body mass index [BMI] 31.0-31.9, adult; Z20.822 Contact with and (suspected) exposure to COVID-19; Z88.6 Allergy status to analgesic agent; Z88.1 Allergy status to other antibiotic agents
CPT/HCPCS: 36415; 80053; 82140; 82150; 83605; 83690; 83735; 85025; 87040; 96360; 96361; 99284; J7030; U0002; 99283

== ENCOUNTER 2022-09-27 04:49 | Emergency (ER) | payer MEDICARE, MEDICAID ==
[2022-09-27 05:54] VITALS: BP 143/74; PULSE 71
[2022-09-27 05:55] LABS: ANION GAP 13.9 mEq/L (7-13)
[2022-09-27] MEDS ORDERED: Phenazopyridine 95 MG Tab PO ONE (06:04)
[2022-09-27] MEDS ORDERED: cefTRIAXone 2 GM in Sodium Chloride 0.9% 100 ML IV ONE (06:07)
[2022-09-27] MEDS ORDERED: Iopamidol 612 MG/ML 100 ML Bottle IVPUSH ONE (06:42)
== END 2022-09-27 07:20 ==
LOC: DL.ED 04:49
DX: N12 Tubulo-interstitial nephritis, not specified as acute or chronic (principal); E11.9 Type 2 diabetes mellitus without complications; I10 Essential (primary) hypertension; Z88.1 Allergy status to other antibiotic agents
CPT/HCPCS: 36415; 74178; 80053; 81001; 85025; 87086; 87088; 87186; 96374; 99284; A9270; J0696; Q9967

== ENCOUNTER 2023-04-11 19:30 | Emergency (ER) | payer MEDICARE, MEDICAID ==
[2023-04-11 19:57] VITALS: BP 90/60; PULSE 75
[2023-04-11] MEDS ORDERED: Sodium Chloride 0.9% 1,000 ML IV ONE (20:03)
[2023-04-11] MEDS ORDERED: Sodium Chloride 0.9% 10 ML Syringe FLUSH PRN (20:03)
[2023-04-11 20:17] LABS: BASOPHILS PERCENT AUTO 0.3 % (0.0-1.0); HEMOGLOBIN 14.2 g/dL (12.0-16.0); LYMPHOCYTES PERCENT AUTO 29.4 % (20.5-50.1); MEAN CORPUSCULAR HEMOGLOBIN 30.7 pg (27.0-34.0); MEAN CORPUSCULAR VOLUME 93.1 fL (80-100); MONOCYTES PERCENT AUTO 7.5 % (2-8); NEUTROPHILS PERCENT AUTO 61.8 % (42.2-75.2); PLATELET COUNT,PLT 240 10^3/uL (150-450); RED BLOOD CELL COUNT 4.62 10^6/uL (4.2-5.4); WHITE BLOOD CELL COUNT,WBC 11.9 10^3/uL (5.0-10.0)
[2023-04-11 20:37] LABS: APPEARANCE,URINE CLEAR (CLEAR); BILIRUBIN,URINE NEGATIVE (NEGATIVE); COLOR,URINE YELLOW (YELLOW); GLUCOSE,URINE NEGATIVE (NEGATIVE); KETONES,URINE NEGATIVE (NEGATIVE); LEUKOCYTE ESTERASE,URINE NEGATIVE (NEGATIVE); NITRITE,URINE NEGATIVE (NEGATIVE); OCCULT BLOOD,URINE NEGATIVE (NEGATIVE); PROTEIN,URINE TRACE (NEGATIVE); UROBILINOGEN,URINE 0.2 mg/dL (0.2-1.0)
[2023-04-11 20:41] LABS: A/G RATIO 1.3; ALBUMIN 3.8 g/dL (3.4-5.0); ANION GAP 16.1 mEq/L (7-13); BILIRUBIN TOTAL 0.1 mg/dL (0.2-1.0); CALCIUM 9.2 mg/dL (8.5-10.1); CREATININE 0.75 mg/dL (0.55-1.02); EST CRCL DRUG DOSING (CG) 81.83 mL/min; POTASSIUM,K 4.1 mmol/L (3.5-5.1); PROTEIN TOTAL,TP 6.7 g/dL (6.4-8.2)
[2023-04-11 20:45] LABS: EPITHELIAL CELLS,URINE MODERATE /HPF (NOT SEEN); RBC,URINE 0-5 /HPF (0-5)
[2023-04-11 20:46] LABS: AMORPHOUS SEDIMENT,URINE FEW /HPF (NOT SEEN); BACTERIA,URINE FEW /HPF (0-FEW/HPF); HYALINE CASTS,URINE RARE; MUCUS,URINE MODERATE /LPF (NOT SEEN)
[2023-04-11] MEDS ORDERED: Ketorolac 30 MG/ML SDV IVPUSH ONE (21:25)
== END 2023-04-11 22:54 | disposition home or self-care (01) ==
LOC: DL.ED 19:30
DX: S83.92XA Sprain of unspecified site of left knee, initial encounter (principal); R53.1 Weakness; R42 Dizziness and giddiness; I10 Essential (primary) hypertension; J44.9 Chronic obstructive pulmonary disease, unspecified; M06.9 Rheumatoid arthritis, unspecified; E11.40 Type 2 diabetes mellitus with diabetic neuropathy, unspecified; E03.9 Hypothyroidism, unspecified; E66.9 Obesity, unspecified; Z68.29 Body mass index [BMI] 29.0-29.9, adult; Z88.1 Allergy status to other antibiotic agents; Z88.5 Allergy status to narcotic agent; Z88.8 Allergy status to other drugs, medicaments and biological substances; Z79.82 Long term (current) use of aspirin; Z79.899 Other long term (current) drug therapy; Z86.16 Personal history of COVID-19; X50.1XXA Overexertion from prolonged static or awkward postures, initial encounter
CPT/HCPCS: 36415; 70450; 80053; 81001; 84484; 85025; 93005; 96361; 96374; 99285; J1885; J7050; J3490

== ENCOUNTER 2023-05-23 17:59 | Emergency (ER) | payer MEDICARE, MEDICAID ==
[2023-05-23 18:26] VITALS: BP 126/77; PULSE 84
[2023-05-23] MEDS ORDERED: Bisacodyl 10 MG Supp RECTAL ONE (19:14)
[2023-05-23] MEDS ORDERED: Methylnaltrexone 12 MG/0.6 ML SDV SUBCUT ONE (19:14)
[2023-05-23] MEDS ORDERED: Lactulose Soln 10 GM/15 ML 30 ML UD Cup PO ONE (19:14)
== END 2023-05-23 19:20 | disposition home or self-care (01) ==
LOC: DL.ED 17:59
DX: K59.03 Drug induced constipation (principal); T50.995A Adverse effect of other drugs, medicaments and biological substances, initial encounter; E11.9 Type 2 diabetes mellitus without complications; E03.9 Hypothyroidism, unspecified; E78.00 Pure hypercholesterolemia, unspecified; Z86.16 Personal history of COVID-19; Z88.1 Allergy status to other antibiotic agents; Z88.5 Allergy status to narcotic agent; Z88.8 Allergy status to other drugs, medicaments and biological substances; Z79.82 Long term (current) use of aspirin; Z79.899 Other long term (current) drug therapy; Z72.0 Tobacco use
CPT/HCPCS: 74019; 96372; 99284; A9270-GY; J2212-GY

== ENCOUNTER 2023-05-27 05:58 | Emergency (ER) | payer MEDICARE, MEDICAID ==
[2023-05-27 06:32] VITALS: BP 140/81; PULSE 82
== END 2023-05-27 06:53 | disposition home or self-care (01) ==
LOC: DL.ED 05:58
DX: K59.03 Drug induced constipation (principal); T50.995A Adverse effect of other drugs, medicaments and biological substances, initial encounter; R11.0 Nausea; E11.9 Type 2 diabetes mellitus without complications; E03.9 Hypothyroidism, unspecified; F17.210 Nicotine dependence, cigarettes, uncomplicated; Z86.16 Personal history of COVID-19; Z88.1 Allergy status to other antibiotic agents; Z88.5 Allergy status to narcotic agent; Z91.038 Other insect allergy status; Z79.82 Long term (current) use of aspirin; Z79.899 Other long term (current) drug therapy
CPT/HCPCS: 99283

== ENCOUNTER 2023-08-12 13:48 | Emergency (ER) | payer MEDICARE, MEDICAID ==
[2023-08-12 14:12] VITALS: BP 108/67
[2023-08-12] MEDS ORDERED: Albuterol/Ipratropium 3.0-0.5 MG/3 ML Neb Soln NEB ONE (14:13)
[2023-08-12] MEDS ORDERED: Albuterol/Ipratropium 3.0-0.5 MG/3 ML Neb Soln ONE (14:29)
[2023-08-12] MEDS ORDERED: Formoterol/Mometasone 200-5 MCG 8.8 GM Inhaler IH ONE (14:58)
[2023-08-12 15:06] VITALS: PULSE 83
[2023-08-12] MEDS ORDERED: Azithromycin 250 MG Tab PO ONE (15:33)
[2023-08-12] MEDS ORDERED: predniSONE 20 MG Tab PO ONE (15:33)
[2023-08-12] MEDS ORDERED: Formoterol/Mometasone 200-5 MCG 8.8 GM Inhaler IH SCH (18:00)
== END 2023-08-12 15:53 | disposition home or self-care (01) ==
LOC: DL.ED 13:48
DX: J45.41 Moderate persistent asthma with (acute) exacerbation (principal); E11.40 Type 2 diabetes mellitus with diabetic neuropathy, unspecified; I10 Essential (primary) hypertension; F17.210 Nicotine dependence, cigarettes, uncomplicated; Z86.16 Personal history of COVID-19; Z88.1 Allergy status to other antibiotic agents; Z88.5 Allergy status to narcotic agent; Z88.8 Allergy status to other drugs, medicaments and biological substances; Z79.82 Long term (current) use of aspirin; Z79.899 Other long term (current) drug therapy
CPT/HCPCS: 71046; 94010; 94640; 94668; 99284; 99285; A9270-GY; J7512; J7620-GY

== ENCOUNTER 2024-03-01 04:46 | Emergency (ER) | payer MEDICARE, MEDICAID ==
[2024-03-01 05:04] VITALS: BP 124/80; PULSE 82
[2024-03-01 05:06] LABS: APPEARANCE,URINE CLOUDY (CLEAR); BILIRUBIN,URINE SMALL (NEGATIVE); COLOR,URINE AMBER (YELLOW); GLUCOSE,URINE >=1000 (NEGATIVE); KETONES,URINE TRACE (NEGATIVE); LEUKOCYTE ESTERASE,URINE TRACE (NEGATIVE); NITRITE,URINE POSITIVE (NEGATIVE); OCCULT BLOOD,URINE LARGE (NEGATIVE); PH,URINE 5.5 (5.0-9.0); PROTEIN,URINE 100 (NEGATIVE)
[2024-03-01 05:15] LABS: AMORPHOUS SEDIMENT,URINE MODERATE /HPF (NOT SEEN); BACTERIA,URINE MANY /HPF (0-FEW/HPF); EPITHELIAL CELLS,URINE FEW /HPF (NOT SEEN); MUCUS,URINE FEW /LPF (NOT SEEN); RBC,URINE PACKED /HPF (0-5); WBC,URINE 40-50 /HPF (0-5/HPF)
[2024-03-01] MEDS ORDERED: Cephalexin 500 MG Cap PO ONE (05:41)
== END 2024-03-01 05:31 | disposition home or self-care (01) ==
LOC: DL.ED 04:46
DX: N30.91 Cystitis, unspecified with hematuria (principal); I10 Essential (primary) hypertension; E11.40 Type 2 diabetes mellitus with diabetic neuropathy, unspecified; Z86.16 Personal history of COVID-19; J45.909 Unspecified asthma, uncomplicated; E78.00 Pure hypercholesterolemia, unspecified; Z79.82 Long term (current) use of aspirin; Z79.899 Other long term (current) drug therapy; Z79.84 Long term (current) use of oral hypoglycemic drugs; Z88.1 Allergy status to other antibiotic agents; Z88.8 Allergy status to other drugs, medicaments and biological substances; Z88.5 Allergy status to narcotic agent
CPT/HCPCS: 81001; 87086; 87088; 87186; 99284

== ENCOUNTER 2024-09-13 15:50 | Emergency (ER) | payer MEDICARE, MEDICAID ==
[2024-09-13] MEDS: Iopamidol 612 MG/ML 100 ML Bottle IVPUSH ONE (18:21)
[2024-09-13] MEDS: Acetaminophen 500 MG Tab PO ONE (18:48)
[2024-09-13] MEDS: Ketorolac 30 MG/ML SDV IVPUSH ONE (18:48)
[2024-09-13] MEDS: Take Home: Doxycycline 100 MG Cap, 4 Cap Pack PO ONE (19:43)
[2024-09-13] MEDS: Doxycycline Monohydrate 100 MG Cap PO ONE (19:43)
[2024-09-13 19:52] VITALS: BP 120/74; PULSE 64
== END 2024-09-13 19:48 | disposition home or self-care (01) ==
LOC: DL.ED 15:50
DX: L03.314 Cellulitis of groin (principal); I10 Essential (primary) hypertension; J45.909 Unspecified asthma, uncomplicated; E11.9 Type 2 diabetes mellitus without complications; Z90.49 Acquired absence of other specified parts of digestive tract; Z87.891 Personal history of nicotine dependence; Z79.82 Long term (current) use of aspirin; Z79.899 Other long term (current) drug therapy; Z88.1 Allergy status to other antibiotic agents; Z88.5 Allergy status to narcotic agent; Z88.8 Allergy status to other drugs, medicaments and biological substances
CPT/HCPCS: 74177; 96374; 99283; A9270; J1885; Q9967

== ENCOUNTER 2024-10-18 10:41 | Emergency (ER) | payer MEDICARE, MEDICAID ==
[2024-10-18 11:46] VITALS: BP 123/73; PULSE 89
== END 2024-10-18 11:42 | disposition home or self-care (01) ==
LOC: DL.ED 10:41
DX: J31.0 Chronic rhinitis (principal); I10 Essential (primary) hypertension; E78.00 Pure hypercholesterolemia, unspecified; J45.909 Unspecified asthma, uncomplicated; E11.9 Type 2 diabetes mellitus without complications; Z86.16 Personal history of COVID-19; Z79.899 Other long term (current) drug therapy; Z79.82 Long term (current) use of aspirin; Z79.890 Hormone replacement therapy; Z88.8 Allergy status to other drugs, medicaments and biological substances; Z88.1 Allergy status to other antibiotic agents; Z88.5 Allergy status to narcotic agent
CPT/HCPCS: 99283

== ENCOUNTER 2025-09-18 16:31 | Emergency (ER) | payer MEDICARE, MEDICAID ==
[2025-09-18] MEDS ORDERED: Sodium Chloride 0.9% 10 ML Syringe FLUSH PRN (16:36)
[2025-09-18] MEDS: fentaNYL 100 MCG/2 ML SDV IVPUSH ONE (16:45)
[2025-09-18] MEDS: Ketorolac 30 MG/ML SDV IVPUSH ONE (16:50)
[2025-09-18 17:32] VITALS: BP 129/68; PULSE 67
== END 2025-09-18 17:28 | disposition home or self-care (01) ==
LOC: DL.ED 16:31
DX: S42.342A Displaced spiral fracture of shaft of humerus, left arm, initial encounter for closed fracture (principal); S42.202A Unspecified fracture of upper end of left humerus, initial encounter for closed fracture; E78.00 Pure hypercholesterolemia, unspecified; I10 Essential (primary) hypertension; Z86.16 Personal history of COVID-19; E11.9 Type 2 diabetes mellitus without complications; Z88.1 Allergy status to other antibiotic agents; Z88.5 Allergy status to narcotic agent; Z79.82 Long term (current) use of aspirin; Z79.899 Other long term (current) drug therapy; W18.40XA Slipping, tripping and stumbling without falling, unspecified, initial encounter; Y93.89 Activity, other specified
CPT/HCPCS: 73060-LT; 96374; 96375; 99283-25; J1885; J3010